=== PATIENT | female | born 1935 | race Caucasian/White ===

== ENCOUNTER 2016-08-17 09:37 | Observation (INO) | payer OTHER, MEDICAID ==
[2016-08-17] MEDS ORDERED: ONDANSETRON 4 MG/2 ML VIAL IVP ONE (10:16)
[2016-08-17] MEDS ORDERED: NS 1,000 ML IV ONE (10:16)
[2016-08-17] MEDS ORDERED: PANTOPRAZOLE SODIUM 40 MG in NS 100 ML IV ONE (10:17)
--- NOTE | 2016-08-17 10:20 | EDPHY ---
H & P Stated Complaint: black stools since wednesday , history of GI bleed Time Seen by Provider: 08/17/16 09:54 HPI/ROS: CHIEF COMPLAINT: GI bleed HISTORY OF PRESENT ILLNESS: The patient is an 80-year-old female who presents with her for dark tarry stools for the last day and a half. She feels slightly lightheaded when standing. She has a history of valvular heart disease with mitral regurgitation status post aortic valve replacement and congestive heart failure. Also history of atrial fibrillation with a permanent pacemaker. She is not anticoagulated because of 2 previous episodes of GI bleed. She had upper endoscopy, lower endoscopy and has swallowed a camera pill. No definitive source for the bleeding has been found. She has required blood transfusion in the past. Her electric cutter operator is Dr. Williamson her transcribing operator head is Dr. Toro. REVIEW OF SYSTEMS: Constitutional: denies: chills, fever, recent illness, recent injury EENTM: denies: blurred vision, double vision, nose congestion Respiratory: denies: cough, shortness of breath Cardiac: denies: chest pain, irregular heart rate, lightheadedness, palpitations Gastrointestinal/Abdominal: See HPI denies: abdominal pain, diarrhea, nausea, vomiting Genitourinary: denies: dysuria, frequency, hematuria, pain Musculoskeletal: denies: joint pain, muscle pain Skin: denies: lesions, rash, jaundice, bruising Neurological: denies: headache, numbness, paresthesia, tingling, dizziness, weakness Hematologic/Lymphatic: denies: blood clots, easy bleeding, easy bruising Immunologic/allergic: denies: HIV/AIDS, transplant EXAM: GENERAL: Well-appearing, well-nourished and in no acute distress. HEAD: Atraumatic, normocephalic. EYES: Pupils equal round and reactive to light, extraocular movements intact, sclera anicteric, conjunctiva are normal. ENT: TMs normal, nares patent, oropharynx clear without exudates. Moist mucous membranes. NECK: Normal range of motion, supple without lymphadenopathy or JVD. LUNGS: Breath sounds clear to auscultation bilaterally and equal. No wheezes rales or rhonchi. HEART: Regular rate and rhythm without murmurs, rubs or gallops. ABDOMEN: Soft, nontender, normoactive bowel sounds. No guarding, no rebound. No masses appreciated. , rectal exam with multiple hemorrhoids, dark tarry stool on exam. BACK: No CVA tenderness, no spinal tenderness, step-offs or deformities EXTREMITIES: Normal range of motion, no pitting or edema. No clubbing or cyanosis. NEUROLOGICAL: Cranial nerves II through XII grossly intact. Normal speech, normal gait. 5/5 strength, normal movement in all extremities, normal sensation PSYCH: Normal mood, normal affect. SKIN: Warm, dry, normal turgor, no visible rashes or lesions. 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 HEMORRHOIDS, AORTIC VALVE REPLACEMENT - Family History Significant Family History: No pertinent family hx - Social History Smoking Status: Never smoked Alcohol Use: Sober Drug Use: None Constitutional: Initial Vital Signs Temperature (C) 36.7 C 08/17/16 09:42 Heart Rate 83 08/17/16 09:42 Respiratory Rate 16 08/17/16 09:42 Blood Pressure 178/87 H 08/17/16 09:42 O2 Sat (%) 90 L 08/17/16 09:42 O2 Delivery Mode Nasal Cannula O2 (L/minute) 2 Allergies/Adverse Reactions: Penicillins Allergy (Severe, Verified 12/27/15 11:40) Anaphylaxis Home Medications: Medication Instructions Recorded Letrozole [Femara 2.5 mg (*)] 2.5 mg PO DAILY 08/17/13 Thyroid [[place] Thyroid 60 MG (*)] 120 mg PO DAILY 08/17/13 Oxybutynin Chloride [OXYBUTYNIN 10 mg PO MWF@08/08/15 CHLORIDE ER] Herbals/Supplements -Info Only 1 ea PO DAILY 09/27/15 Cholecalciferol Vit D3 [Vitamin D3 2,000 units PO DAILY 12/27/15 2000 units] Multivitamins [Multivitamin (*)] 1 each PO DAILY 12/27/15 Pantoprazole Sodium [Protonix 40mg 40 mg PO BID 12/27/15 (*)] Sertraline HCl [Zoloft 50mg (*)] 50 mg PO DAILY 12/27/15 Aspirin [Aspirin 81mg (*)] 81 mg PO DAILY 02/10/16 Atorvastatin Calcium [Lipitor 40 40 mg PO HS 02/10/16 mg (*)] Ferrous Sulfate [Ferrous Sulf 325 325 mg PO DAILY 02/10/16 MG (*)] Diltiazem HCl [Taztia Xt] 240 mg PO DAILY 04/26/16 Torsemide [Demadex] 10 mg PO DAILY@12 04/26/16 Torsemide [Demadex] 20 mg PO DAILY 04/26/16 Labetalol HCl [Trandate 100 mg (*)] 100 mg PO BID #60 tab 05/02/16 hydrALAZINE [Apresoline 50 mg (*)] 75 mg PO TID #30 tab 05/02/16 Ascorbic Acid [Vitamin C 500 mg 500 mg PO DAILY 08/17/16 (*)] Donepezil HCl [Aricept 5 MG (*)] 5 mg PO DAILY 08/17/16 Magnesium Oxide [Magnesium Oxide 400 mg PO HS 08/17/16 400 mg (*)] Medical Decision Making ED Course/Re-evaluation: Patient is feeling well. She is not lightheaded. She is mildly hypertensive. Will give her her home high antihypertensives. Her hematocrit is 31 which is better than previous measurements. She does have black tar stool. The hemoccult is negative but I am concerned that this is a false negative. She does take iron. She has not been eating pizza or other unusual foods. She states that she did not feel well yesterday and was not able to eat much at all. 12:25 p.m. I discussed the case with Moriah who accepted for Dr. Webber to the [facility]. Differential Diagnosis: Partial list of the Differential diagnosis considered include but were not limited to; GI bleed, hemorrhoid, peptic ulcer disease, gastric ulcer and although unlikely based on the history and physical exam, I also considered ischemia, diverticulitis, appendicitis. - Data Points Laboratory Results: Laboratory Results 08/17/16 10:05 08/17/16 10:05 08/17/16 08/17/16 08/17/16 10:10 10:05 10:05 WBC 5.90 10^3/uL 10^3/uL (3.80-9.50) RBC 3.73 10^6/uL L 10^6/uL (4.18-5.33) Hgb 10.0 g/dL L g/dL (12.6-16.3) Hct 31.8 % L % (38.0-47.0) MCV 85.3 fL fL (81.5-99.8) MCH 26.8 pg L pg (27.9-34.1) MCHC 31.4 g/dL L g/dL (32.4-36.7) RDW 16.5 % H % (11.5-15.2) Plt Count 335 10^3/uL 10^3/uL (150-400) MPV 8.7 fL fL (8.7-11.7) Neut % (Auto) 69.2 % % (39.3-74.2) Lymph % (Auto) 15.6 % % (15.0-45.0) Gates % (Auto) 9.0 % % (4.5-13.0) Eos % (Auto) 4.9 % % (0.6-7.6) Baso % (Auto) 1.0 % % (0.3-1.7) Nucleat RBC Rel Count 0.0 % % (0.0-0.2) Absolute Neuts (auto) 4.08 10^3/uL 10^3/uL (1.70-6.50) Absolute Lymphs (auto) 0.92 10^3/uL L 10^3/uL (1.00-3.00) Absolute Monos (auto) 0.53 10^3/uL 10^3/uL (0.30-0.80) Absolute Eos (auto) 0.29 10^3/uL 10^3/uL (0.03-0.40) Absolute Basos (auto) 0.06 10^3/uL 10^3/uL (0.02-0.10) Absolute Nucleated RBC 0.00 10^3/uL 10^3/uL (0-0.01) Immature Gran % 0.3 % % (0.0-1.1) Immature Gran # 0.02 10^3/uL 10^3/uL (0.00-0.10) Sodium 140 mEq/L mEq/L (134-144) Potassium 4.1 mEq/L mEq/L (3.5-5.2) Chloride 101 mEq/L mEq/L (97-110) Carbon Dioxide 26 mEq/l mEq/l (22-31) Anion Gap 13 mEq/L mEq/L (8-16) BUN 20 mg/dL mg/dL (7-23) Creatinine 1.3 mg/dL H mg/dL (0.6-1.0) Estimated GFR 39 Glucose 83 mg/dL mg/dL (70-100) Calcium 10.2 mg/dL mg/dL (8.5-10.4) Total Bilirubin 0.8 mg/dL mg/dL (0.1-1.4) Conjugated Bilirubin 0.5 mg/dL mg/dL (0.0-0.5) Unconjugated Bilirubin 0.3 mg/dL mg/dL (0.0-1.1) AST 29 IU/L IU/L (14-46) ALT 32 IU/L IU/L (9-52) Alkaline Phosphatase 129 IU/L H IU/L (38-126) Total Protein 7.3 g/dL g/dL (6.3-8.2) Albumin 4.3 g/dL g/dL (3.5-5.0) Lipase 58.0 IU/L IU/L (23-300) Stool Occult Bld Scrn NEGATIVE (NEGATIVE) Medications Given: Discontinued Medications Sodium Chloride (Ns) 1,000 mls @ 0 mls/hr IV ONCE ONE PRN Reason: Wide Open Stop: 08/17/16 10:17 Last Admin: 08/17/16 10:20 Dose: 1,000 mls Pantoprazole Sodium 40 mg/ (Sodium Chloride) 100 mls @ 200 mls/hr IV EDNOW ONE Stop: 08/17/16 10:46 Last Admin: 08/17/16 10:30 Dose: 100 mls Ondansetron HCl (Zofran) 4 mg IVP EDNOW ONE Stop: 08/17/16 10:17 Last Admin: 08/17/16 10:15 Dose: 4 mg Departure - Departure Disposition: [facility]patient Acute Clinical Impression: Upper GI bleed Condition: Fair
[2016-08-17 10:24] LABS: % IMMATURE GRANULYOCYTES 0.3 % (0.0-1.1); ABSOLUTE IMMATURE GRANULOCYTES 0.02 10^3/uL (0.00-0.10); ADD DIFF? NO; ADD MORPH? NO; ADD SCAN? NO; ATYPICAL LYMPHOCYTE FLAG 10 (0-99); FRAGMENT RBC FLAG 0 (0-99); HEMATOCRIT 31.8 % (38.0-47.0); LEFT SHIFT FLG 0 (0-99); LIPEMIA HEMOLYSIS FLAG 80 (0-99); MEAN CELL HEMOGLOBIN 26.8 pg (27.9-34.1); MEAN CELL HEMOGLOBIN CONCENTR. 31.4 g/dL (32.4-36.7); MEAN CELL VOLUME 85.3 fL (81.5-99.8); MEAN PLATELET VOLUME 8.7 fL (8.7-11.7); PLATELET CLUMPS FLAG 10 (0-99); PLATELET COUNT 335 10^3/uL (150-400); RED BLOOD CELL COUNT 3.73 10^6/uL (4.18-5.33); RED CELL DISTRIBUTION WIDTH 16.5 % (11.5-15.2)
[2016-08-17 10:42] LABS: ALANINE AMINOTRANSFERASE 32 IU/L (9-52); ALBUMIN 4.3 g/dL (3.5-5.0); ALKALINE PHOSPHATASE 129 IU/L (38-126); ANION GAP 13 mEq/L (8-16); ASPARTATE AMINOTRANSFERASE 29 IU/L (14-46); BILIRUBIN,TOTAL 0.8 mg/dL (0.1-1.4); BILIRUBIN-CONJUGATED 0.5 mg/dL (0.0-0.5); BILIRUBIN-UNCONJUGATED 0.3 mg/dL (0.0-1.1); CALCIUM 10.2 mg/dL (8.5-10.4); CARBON DIOXIDE 26 mEq/l (22-31); CHLORIDE 101 mEq/L (97-110); CREATININE 1.3 mg/dL (0.6-1.0); GLOMERULAR FILTRATION RATE 39; GLUCOSE 83 mg/dL (70-100); POTASSIUM 4.1 mEq/L (3.5-5.2); SODIUM 140 mEq/L (134-144); TOTAL PROTEIN 7.3 g/dL (6.3-8.2)
--- NOTE | 2016-08-17 12:45 | HOSPPROG ---
Hospitalist Progress Note Assessment/Plan: HISTORY AND PHYSICAL CC: dark stools HISTORY: This patient comes into the ER today because of a complaint of dark stools. History comes in part from the patient but also largely from her as the patient does have some memory issues. Chronic to the the patient was doing well until about 10 days ago. For approximately a week at that point the patient developed intermittent bouts of nausea and other times intermittent bouts of decreased appetite and significant fatigue. This went on without abdominal pain or vomiting or fever. Then 2 days ago she felt significantly better, was eating well without nausea and was out drinking upwards in the garden for a good part of the day. Then yesterday she began to have numerous bouts of loose stools. As far as I can tell there was no pain associated with this and again no fevers, though the patient's memory issues may interfere with evaluation for pain at this time. This morning patient noticed that her stool appeared black and she showed this to her who agreed that appeared black. It sounds like she may have had 1 black stool last evening as well. There is no red blood, no emesis good. No abdominal pain. In the emergency room she was test by Dr. Mcdonald who performed rectal exam and found again black looking stools that he felt looks like melena but on occult blood testing that was negative for blood. The patient has felt well otherwise recently with no symptoms and no symptoms of exacerbation of her chronic illnesses. Notably she has a history of upper GI bleed on 2 occasions 1 of which is associated with gastritis and a more recent of which was associated with inability to find a source despite upper and lower endoscopy and capsule endoscopy. She does take chronic proton pump inhibitor therapy twice daily. She does take an aspirin a day but does not take any other platelet inhibitors or anticoagulants because of her history of recurrent bleeding. This is the recommendation she came to with Dr. Phill Toro evaluating both her bleeding episodes and her cardiac issues. ROS: A comprehensive 10 system review revealed no other significant findings PAST MEDICAL HISTORY: GI bleeding of unknown source (Dr Williamson), and another episode of upper gi bleed from gastritis A Fib CAD s/p CABG and now stents placed 2013 and again in 09/27/15 Diast CHF Mitral Regurgitaion, s/p TAVR for Ao Stenosis NICOLE Chronic Kidney Disease Breast Cancer NHL, s/p tx in remission Dementia BPPV FAMILY MEDICAL HISTORY: Heart Disease SOCIAL HISTORY: lives with in [place];He is her surrogate decision maker if needed No tobacco or alcohol MEDICATIONS: The patients list has been reconciled by our clinical pharmacist in the EMR. I have reviewed the list and ordered appropriate medicines. Allergy to PCN (hives) PHYSICAL EXAMINATION: Vital Signs: Moderately severe hypertension upon arrival which has come down to better blood pressure spontaneously here so far. She did miss some of her blood pressure medicines last night and this morning. 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: rate controlled AFib in the ER Examination: General: alert, oriented, some obvious memory deficit, at her baseline per her , otherwise good mentation, relaxed Skin: warm, dry, good color, no rash HEENT: normal Neck: no mass or jvd Resps: relaxed Lungs: clear breath sounds Heart: regular, no murmur Abdomen: soft, nondistended, nontender, +BS, no mass Upper Extremities: normal Lower Extremities: minimal edema at both ankles, warm No Bleeding or bruising Neurologic: normal speech/language, normal blasting entryman, no focal weakness IV site: looks normal LABORATORY DATA: hemoglobin is 10 on CBC which is up from 9.[address] Saldana office and up from 8.7 her last measure here prior to that Otherwise stable labs ASSESSMENT AND PLANS: 1- MELANIC STOOL APPEARANCE BUT TESTED NEGATIVE FOR HEME, PRIOR HX UPPER GI BLEED X2 2- UNCONTROLLED HTN; SHE DID MISS BLOOD PRESSURE MEDICINE DOSES LAST NIGHT AND THIS MORNING DUE TO PRESENTING SYMPTOMS 3- CAD S/P STENTS MOST RECENTLY 09/27/15, ON ANTIPLATELET THERAPY WITH ASPIRIN ALONE 4- ATRIAL FIBRILLATION, AND VALVULAR HEART DISEASE WITH MITRAL REGURGITATION AND TAVR - NO COUMADIN PER DR. TORO DUE TO HER REPEATED BLEEDING 5- NUMBNESS IN HER HAND UPON AWAKENING IN MORNING SUGGESTIVE OF POTENTIALLY CARPAL TUNNEL OR ULNAR TUNNEL SYNDROMES Given the lack of tachycardia, hypotension, decrease in hemoglobin, and heme- negative stool on testing I am inclined to think that this is not a GI bleed episode but given her symptoms possibly an infectious enteritis syndrome. However with a history of 2 upper GI bleeds in the past and ongoing aspirin therapy I will watch her vital signs and hemoglobin closely here, recheck a Hemoccult test to be certain we do not have a false negative, and watch for any other signs of bleeding. For the time being this can be done in the setting of observation status in a bed here. It may be somewhat useful to do a stool microbiologic study to see if we could confirm that there is any infection contributing to her symptoms. At the moment will continue her aspirin as she has drug-eluting stents placed 10 months ago and both valvular disease and AFib not on Plavix or anticoagulation. If there is anything that raises the concern for possible GI bleeding will stop the aspirin as indicated. Will continue her proton pump inhibitors. 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 I have reviewed the patient's case in detail with Dr. BRANDO MCDONALD I have reviewed the patient's past medical records as part of this assessment, including previous hospital admission records as well as outpatient laboratory data Objective: Vital Signs Temp Pulse Resp BP Pulse Ox 36.7 C 85 20 200/95 H 94 08/17/16 09:42 08/17/16 10:00 08/17/16 10:00 08/17/16 11:48 08/17/16 10:00 ICD10 Worksheet Patient Problems: Problems Problem Status Onset Upper GI bleed Acute Anemia Acute CAD (coronary artery disease) Acute Chronic anemia Acute Chronic bilateral upper abdominal pain Acute Chronic obstructive pulmonary disease with acute exacerbation Acute Dehydration Acute Dyspnea Acute Gastrointestinal bleed Acute Hypercalcemia Acute Renal failure Acute Renal insufficiency Acute Upper GI bleed Acute Upper abdominal pain Acute
[2016-08-17] MEDS ORDERED: ONDANSETRON 4 MG/2 ML VIAL IVP PRN (13:53)
[2016-08-17] MEDS ORDERED: ACETAMINOPHEN 325 MG TAB PO PRN (13:53)
[2016-08-17] MEDS ORDERED: OXYBUTYNIN 5 MG EXT REL TAB PO SCH (14:00)
[2016-08-17] MEDS: CHOLECALCIFEROL VIT D3 1,000 UNITS TAB PO SCH (15:40)
[2016-08-17] MEDS: ASCORBIC ACID 500 MG TAB PO SCH (15:40)
[2016-08-17] MEDS: MULTIVITAMINS 1 EACH TAB PO SCH (15:41)
[2016-08-17] MEDS: THYROID 60 MG TAB PO SCH (15:41)
[2016-08-17] MEDS: ASPIRIN 81 MG CHEWABLE TAB PO SCH (15:50)
[2016-08-17] MEDS: SERTRALINE HCL 50 MG TAB PO SCH (15:50)
[2016-08-17] MEDS: FERROUS SULFATE 325 MG TAB PO SCH (15:50)
[2016-08-17] MEDS: DONEPEZIL HCL 5 MG TAB PO SCH (15:50)
[2016-08-17] MEDS: DILTIAZEM XR 240 MG CAP PO SCH (15:55)
[2016-08-17] MEDS: TORSEMIDE 20 MG TAB PO SCH (15:56)
[2016-08-17] MEDS: LABETALOL HCL 100 MG TAB PO SCH (20:34)
[2016-08-17] MEDS: PANTOPRAZOLE SODIUM 40 MG TAB PO SCH (20:34)
[2016-08-17] MEDS ORDERED: ATORVASTATIN CALCIUM 40 MG TAB PO SCH (21:00)
[2016-08-17] MEDS ORDERED: MAGNESIUM OXIDE 400 MG TAB PO SCH (21:00)
[2016-08-18 06:00] LABS: % IMMATURE GRANULYOCYTES 0.3 % (0.0-1.1); ABSOLUTE IMMATURE GRANULOCYTES 0.02 10^3/uL (0.00-0.10); ADD DIFF? NO; ADD MORPH? NO; ADD SCAN? NO; ATYPICAL LYMPHOCYTE FLAG 10 (0-99); FRAGMENT RBC FLAG 0 (0-99); HEMATOCRIT 28.7 % (38.0-47.0); HEMOGLOBIN 8.7 g/dL (12.6-16.3); LEFT SHIFT FLG 0 (0-99); LIPEMIA HEMOLYSIS FLAG 80 (0-99); MEAN CELL HEMOGLOBIN 26.4 pg (27.9-34.1); MEAN CELL HEMOGLOBIN CONCENTR. 30.3 g/dL (32.4-36.7); MEAN CELL VOLUME 87.2 fL (81.5-99.8); MEAN PLATELET VOLUME 8.6 fL (8.7-11.7); PLATELET CLUMPS FLAG 0 (0-99); PLATELET COUNT 268 10^3/uL (150-400); RED BLOOD CELL COUNT 3.29 10^6/uL (4.18-5.33); RED CELL DISTRIBUTION WIDTH 16.3 % (11.5-15.2)
[2016-08-18 06:34] LABS: ANION GAP 10 mEq/L (8-16); CALCIUM 9.7 mg/dL (8.5-10.4); CARBON DIOXIDE 25 mEq/l (22-31); CHLORIDE 103 mEq/L (97-110); CREATININE 1.3 mg/dL (0.6-1.0); GLOMERULAR FILTRATION RATE 39; GLUCOSE 81 mg/dL (70-100); POTASSIUM 4.1 mEq/L (3.5-5.2); SODIUM 138 mEq/L (134-144)
[2016-08-18] MEDS ORDERED: TORSEMIDE 20 MG TAB PO SCH (09:00)
[2016-08-18] MEDS ORDERED: SERTRALINE HCL 50 MG TAB PO SCH (09:00)
[2016-08-18] MEDS ORDERED: LETROZOLE 2.5 MG TAB PO SCH (09:00)
[2016-08-18] MEDS ORDERED: ASCORBIC ACID 500 MG TAB PO SCH (09:00)
[2016-08-18] MEDS ORDERED: ASPIRIN 81 MG CHEWABLE TAB PO SCH (09:00)
[2016-08-18] MEDS ORDERED: DILTIAZEM HCL 240 MG PO SCH (09:00)
[2016-08-18] MEDS ORDERED: CHOLECALCIFEROL VIT D3 1,000 UNITS TAB PO SCH (09:00)
[2016-08-18] MEDS: ASPIRIN 81 MG CHEWABLE TAB PO SCH (09:06)
[2016-08-18] MEDS: ASCORBIC ACID 500 MG TAB PO SCH (09:06)
[2016-08-18] MEDS: CHOLECALCIFEROL VIT D3 1,000 UNITS TAB PO SCH (09:06)
[2016-08-18] MEDS: DILTIAZEM XR 240 MG CAP PO SCH (09:07)
[2016-08-18] MEDS: DONEPEZIL HCL 5 MG TAB PO SCH (09:08)
[2016-08-18] MEDS: LABETALOL HCL 100 MG TAB PO SCH (09:11)
[2016-08-18 09:12] VITALS: PULSE 76
[2016-08-18] MEDS: MULTIVITAMINS 1 EACH TAB PO SCH (09:12)
[2016-08-18] MEDS: PANTOPRAZOLE SODIUM 40 MG TAB PO SCH (09:12)
[2016-08-18] MEDS: SERTRALINE HCL 50 MG TAB PO SCH (09:13)
[2016-08-18] MEDS: THYROID 60 MG TAB PO SCH (09:15)
[2016-08-18 10:17] VITALS: RESP 17; TEMP 98; O2SAT 95
[2016-08-18 13:36] LABS: HEMATOCRIT 28.8 % (38.0-47.0); HEMOGLOBIN 8.9 g/dL (12.6-16.3)
[2016-08-18] MEDS: FERROUS SULFATE 325 MG TAB PO SCH (16:34)
[2016-08-18] MEDS: TORSEMIDE 20 MG TAB PO SCH (16:41)
[2016-08-18 16:45] VITALS: BP 150/67
--- NOTE | 2016-08-18 21:16 | GDS ---
[f rep st] DISCHARGE SUMMARY FINAL DIAGNOSES: 1. Black stools with no signs of gastrointestinal bleed. 2. History of a gastrointestinal bleed. 3. Uncontrolled hypertension. 4. Coronary artery disease, status post coronary artery bypass graft, as well as stents. 5. Atrial fibrillation with a history of mitral regurgitation and transcatheter aortic valve replac ement. 6. Numbness in her hand. HOSPITAL COURSE: This is an 81-year-old female who presented to the Emergency Department due to schuyler ck tarry stools. She does have a history of a GI bleed in the past. Her hemoglobin was checked ser ially, and noted to be at its baseline. She did not have an elevated BUN. She had 2 negative stool occult blood screens. The stool itself was noted to be black when these were taken. She has no hy potension, no tachycardia. I do not think that this represents a GI bleed. I think that this is mo re likely due to medications. She did take a dose of Pepto-Bismol prior to having these stools, and has also been on iron. I reviewed her most recent iron studies, she was slightly iron deficient ba ck in April. I recommend that she hold off on Pepto-Bismol and stop iron supplement at this poin t. I gave them strict warning signs on when to return to the Emergency Department for what would re present a GI bleed. We have discussed stopping other supplements. She is taking a multivitamin. I think it is safe to stop her vitamin C, as well as her vitamin D3 individual supplements, as she is receiving these in her multivitamin. I have not made any other medication changes. FOLLOWUP: She will follow up with Dr. Saldana on September 03. It would be great to have her iron checked prior to that appointment to see if she still needs the iron supplement. /[id number]/MODL
== END 2016-08-18 17:00 | disposition home or self-care (01) ==
LOC: F1N 12:45
PROVIDERS: ADMIT Internal Medicine; ATTEND Student in an Organized Health Care Education/Training Program
DX: R19.5 Other fecal abnormalities (principal); Z87.19 Personal history of other diseases of the digestive system; D64.9 Anemia, unspecified; I10 Essential (primary) hypertension; I25.10 Atherosclerotic heart disease of native coronary artery without angina pectoris; Z95.1 Presence of aortocoronary bypass graft; Z95.5 Presence of coronary angioplasty implant and graft; I48.91 Unspecified atrial fibrillation; I34.1 Nonrheumatic mitral (valve) prolapse; Z95.4 Presence of other heart-valve replacement; R20.0 Anesthesia of skin; Z85.3 Personal history of malignant neoplasm of breast; Z85.72 Personal history of non-Hodgkin lymphomas
CPT/HCPCS: G0378; J2405; 96365

== ENCOUNTER → 2016-10-27 | Outpatient (CLI) | payer OTHER | LOC: FIMAGING 10:36 | PROVIDERS: ATTEND Internal Medicine Geriatric Medicine | DX: R93.8 Abnormal findings on diagnostic imaging of other specified body structures (principal); Z85.3 Personal history of malignant neoplasm of breast; Z85.72 Personal history of non-Hodgkin lymphomas ==

== ENCOUNTER 2017-05-01 10:34 | Emergency (ER) | payer OTHER ==
[2017-05-01 10:41] VITALS: TEMP 97.7
--- NOTE | 2017-05-01 10:49 | CPEKG ---
Heart Rate: 71 RR Interval: 845 P-R Interval: 168 QRSD Interval: 148 QT Interval: 448 QTC Interval: 487 P [place]: 14 QRS [place]: -47 T Wave [place]: 110 EKG Severity - ABNORMAL ECG - EKG Impression: SINUS RHYTHM EKG Impression: LEFT BUNDLE BRANCH BLOCK Electronically Signed By: Nuvia Campos 01-May-2017 14:29:05
--- NOTE | 2017-05-01 10:54 | EDPHY ---
H & P Stated Complaint: cp midsternal since thi morning HPI/ROS: CHIEF COMPLAINT: Chest pain, dizziness HISTORY OF PRESENT ILLNESS: The patient is an 81 y/o female with a significant cardiac history arriving with her for evaluation of chest pain and dizziness onset this morning. Her medical history includes CAD with 7 cardiac stents, CABG, aortic valve replacement, pacemaker, hypertension, and dementia. She states, "I felt like I had an elephant sitting on my chest this morning" just after waking around 06:30, about 4.5 hours ago. Her noticed she was visibly dizzy around 08:00 when she went to take a shower. She then went to a hair styling appointment and continued to have chest pain then, but did not tell her until later this morning prompting him to bring her to the ED. She denies dyspnea, dysuria, abdominal pain, fever, recent illness, or recent trauma. She has taken her morning medications including 81mg aspirin per . She has not taken anything for her pain this morning. Right now she says she feels "fine." Diltazem recently cut in half. History primarily obtained from . REVIEW OF SYSTEMS: A 10 point review of systems was performed and is negative with the exception of the elements mentioned in the history of present illness. Past medical history: 1. Hypertension 2. Dementia 3. CAD Past surgical history: 1. 7 cardiac stents 2. CABG 3. Pacemaker 2014 4. 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 Nonsmoker. Moderate alcohol use. Lives in [place]. PCP: [facility] Dr. Hair. Advanced directives per state "she doesn't want to be in a vegetative state" Adult Physical: General Appearance: Alert, no acute distress. BP 208/95, repeat BP 172/85. Eyes: Pupils equal and round, no conjunctival injection, no discharge. ENT, Mouth: Mucous membranes are moist, no oropharyngeal erythema or edema. Neck: No lymphadenopathy, supple. No JVD. Respiratory: Lungs are clear to auscultation; no wheezes, rales, or rhonchi. Cardiovascular: Regular rate and rhythm; no murmur, rub, or gallop. Gastrointestinal: Abdomen is soft and non tender, no masses or organomegaly, bowel sounds normal. Skin: Warm and dry, no rashes, normal color. Back: Nontender to palpation over the thoracolumbar spine. Extremities: No lower extremity edema, no calf tenderness or swelling. Neurological: Alert and oriented. Moving all four extremities easily and equally. Psychiatric: Normal affect. 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 HEMORRHOIDS, AORTIC VALVE REPLACEMENT - Social History Smoking Status: Never smoked Constitutional: Initial Vital Signs Temperature (C) 36.5 C 05/01/17 10:38 Heart Rate 72 05/01/17 10:38 Respiratory Rate 18 05/01/17 10:38 Blood Pressure 208/95 H 05/01/17 10:38 O2 Sat (%) 94 05/01/17 10:38 O2 Delivery Mode Room Air Allergies/Adverse Reactions: Penicillins Allergy (Severe, Verified 05/01/17 10:37) Anaphylaxis Home Medications: Medication Instructions Recorded Letrozole [Femara 2.5 mg (*)] 2.5 mg PO DAILY 08/17/13 Thyroid [[place] Thyroid 60 MG (*)] 120 mg PO DAILY 08/17/13 Oxybutynin Chloride [OXYBUTYNIN 10 mg PO MW@08/08/15 CHLORIDE ER] Herbals/Supplements -Info Only 1 ea PO DAILY 09/27/15 Multivitamins [Multivitamin (*)] 1 each PO DAILY 12/27/15 Pantoprazole Sodium [Protonix 40mg 40 mg PO BID 12/27/15 (*)] Sertraline HCl [Zoloft 50mg (*)] 50 mg PO DAILY 12/27/15 Aspirin [Aspirin 81mg (*)] 81 mg PO DAILY 02/10/16 Atorvastatin Calcium [Lipitor 40 40 mg PO HS 02/10/16 mg (*)] Diltiazem HCl [Taztia Xt] 240 mg PO DAILY 04/26/16 Torsemide [Demadex] 10 mg PO DAILY@12 04/26/16 Torsemide [Demadex] 20 mg PO DAILY 04/26/16 Labetalol HCl [Trandate 100 mg (*)] 100 mg PO BID #60 tab 05/02/16 hydrALAZINE [Apresoline 50 mg (*)] 75 mg PO TID #30 tab 05/02/16 Donepezil HCl [Aricept 5 MG (*)] 5 mg PO DAILY 08/17/16 Magnesium Oxide [Magnesium Oxide 400 mg PO HS 08/17/16 400 mg (*)] Medical Decision Making - Diagnostics Imaging: I viewed and interpreted images myself ED Course/Re-evaluation: This is an 81 y/o female with a significant cardiac history and dementia who presents with several hours of chest pain and lightheadedness since waking this morning. She currently feels back to normal on assessment. Exam is unremarkable. Plan for standard cardiac work up including IV, labs, EKG, chest x -ray. 324mg PO aspirin administered. The 12 lead EKG was interpreted by myself. Sinus rhythm rate 71, left bundle branch block. See hard copy and/or "tracemaster" electronic copy for interpretation. LBBB seen on previous EKGs. Chest x-ray shows nothing acute. Troponin normal. No evidence of infection. 1223: Reevaluated patient and discussed work up thus far. I have not found signs of acute cardiac etiology for her symptoms, but her story is concerning for cardiac cause like angina. It does not sounds like it is associated with exertion. Acid reflux is also a potential cause for symptoms and she notes she ate [place] food last night for dinner. Discussed options for admission vs. discharge home and associated risks. Admission would allow for serial troponins and provocative cardiac testing. states patient has advanced directives regarding vegetative state, but it's not clear what interventions she would want if they were needed. says she would be able to follow up with her PCP as early as Wednesday for reevaluation. She is eager to go home and follow up later this week. I spoke at some length with him about the risks of returning home--with these including her . He is her medical decision maker/ caregiver, understands the risks, and declines admission. I have no doubt that he is trying to act in her best interest. He understands that they are welcome to return at any time. Differential Diagnosis: I considered a ddx of chest pain that includes but is not limited to ACS, pneumonia, pericarditis, pneumothorax, pacer failure, PE. - Data Points Laboratory Results: Laboratory Results 05/01/17 10:53 05/01/17 10:53 Medications Given: Discontinued Medications Aspirin (Aspirin) 324 mg PO EDNOW ONE Stop: 05/01/17 11:05 Last Admin: 05/01/17 11:22 Dose: 324 mg Departure - Departure Disposition: Home, Routine, Self-Care Clinical Impression: Chest pain Qualifiers: Chest pain type: precordial pain Qualified Code(s): R07.2 - Precordial pain Condition: Good Instructions: Angina (ED), Chest Pain (ED) Additional Instructions: 1. Continue taking medications as directed. 2. Please follow up with your primary care provider and special education para professional early this week. You've been referred to [facility] if needed. 3. Return to the ED for any worsening of condition. Referrals: Dunia Dennison MD [Primary Care Provider] - As per Instructions Mg Braxton MD [Medical Doctor] - As per Instructions Report Scribed for: Nuvia Campos Report Scribed by: Barbara Montemayor Date of Report: 05/01/17 Time of Report: 11:06 Physician Review and Approval Statement: 05/08/17 08:25 Portions of this chart were entered by a biomedical service engineer. I personally performed the HPI, PE, and MDM. I have reviewed the chart and agree with the documentation.
[2017-05-01] MEDS ORDERED: ASPIRIN 81 MG CHEWABLE TAB PO ONE (11:04)
[2017-05-01 11:13] LABS: PLATELET COUNT 219 10^3/uL (150-400)
[2017-05-01 12:40] VITALS: BP 172/85; PULSE 62; RESP 24; O2SAT 98
== END 2017-05-01 13:19 | disposition home or self-care (01) ==
DX: R07.2 Precordial pain (principal); I10 Essential (primary) hypertension; I25.810 Atherosclerosis of coronary artery bypass graft(s) without angina pectoris; Z79.82 Long term (current) use of aspirin; Z85.3 Personal history of malignant neoplasm of breast; Z95.0 Presence of cardiac pacemaker; Z95.5 Presence of coronary angioplasty implant and graft

== ENCOUNTER 2017-06-03 17:56 | Observation (INO) | payer OTHER ==
--- NOTE | 2017-06-03 18:18 | CPEKG ---
Heart Rate: 86 RR Interval: 698 P-R Interval: 200 QRSD Interval: 144 QT Interval: 436 QTC Interval: 522 P Vinton: 86 QRS Vinton: -43 T Wave Vinton: 122 EKG Severity - ABNORMAL ECG - EKG Impression: SINUS RHYTHM EKG Impression: LEFT BUNDLE BRANCH BLOCK Electronically Signed By: Debora Dasilva 03-Jun-2017 22:41:47
--- NOTE | 2017-06-03 18:18 | EDPHY ---
HPI/HX/ROS/PE/MDM Narrative: CHIEF COMPLAINT: Chest pressure HISTORY OF PRESENT ILLNESS: The patient is an 81 y/o female with an extensive cardiac history including CAD , CABG, pacemaker, stents, atrial fibrillation, aortic valve replacement (2015), dementia. She is complaining of sudden onset mid-sternal chest pain radiating to her right back, onset 17:15, 1 hour ago. She states she "felt like I had an elephant sitting on my chest when the pain began". The pain began to decrease 30 minutes after onset and is still decreasing. At around 18:20, she began to feel flushed, but is no longer feeling this. The pain is currently a 1/ 10 but was a 9/10 at its worse. Denies feeling short of breath or lightheaded today. Denies swelling in her legs. Denies changes to her medications. On she was seen in this ED for chest pain and dizziness but discharged home, she is not dizzy today. Takes 81mg Aspirin daily. No fever, chills, shortness of breath, palpitations, vomiting, diarrhea, urinary complaints, headache, lightheadedness. Has previously seen Dr. Toro with [facility]. Patient's primary care physician is Dr. Dunia Dennison. Patient is part of the [facility] program. Prior medical records reviewed including ED visit with Dr. Campos on 05/01/17. REVIEW OF SYSTEMS: Aside from elements discussed in the HPI, a comprehensive 10-point review of systems was reviewed and is negative. Patient denies any cold symptoms, cough, runny nose. 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 Dennison ([phone]) in the [facility]. VITAL SIGNS: BP: 195/130, O2Sat: 91%, others reviewed by me GENERAL: Well-developed, well-nourished, resting comfortably in no respiratory distress. HEENT: Atraumatic. Eyes: No icterus, no injection. Mouth: moist mucous membranes. No erythema or lesions. Neck: supple with no adenopathy. LUNGS: Clear to auscultation bilaterally, no wheezes, rhonchi or rales. CARDIAC: Split S2 and soft systolic murmur. Regular rate and rhythm, no rubs or gallops. ABDOMEN: Soft, nontender, nondistended, bowel sounds normal. BACK: No CVA tenderness. EXTREMITIES: No trauma. No edema. Range of motion is normal throughout. NEURO: Alert and oriented, grossly nonfocal. SKIN: Warm and dry, no rash. PSYCHIATRIC: Normal mentation, no agitation. Portions of this note were transcribed by a medical facilities section director. I personally performed a history, physical exam, medical decision making, and confirmed accuracy of information the transcribed note. ED Course: The patient is an 81 y/o female with an extensive cardiac history including CAD , CABG, pacemaker, stents, atrial fibrillation, aortic valve replacement (2015), dementia. She is presenting to the ED today after developing sudden onset midsternal chest pressure 1 hour ago. The pain has been decreasing since onset. On exam she has a split S2 and soft systolic murmur. Labs, EKG, and chest x-ray ordered. 324mg PO Aspirin administered. 1811: 12-LEAD EKG: Please see the full report in [facility]. My interpretation: Normal sinus rhythm with a rate of 86, left bundle branch block. There is mildly more ST elevation in leads to V2 V3 in comparison to previous. ST elevation does not reach 5 mm. 1933: Patient has a negative Troponin and normal labs. Her chest x-ray reveals a mildly enlarged cardiac silhouette and postoperative changes. 1943: Patient's creatinine and BUN are mildly worse than her visit on 05/01/17. 2010: Reassessed patient and discussed laboratory and imaging findings. While walking to the bathroom the patient's O2Sats decreased to 84%. Several years ago she was on home oxygen, but has not been on it recently. Her would feel more comfortable if she is admitted for further observation and evaluation. Consulted with Dr. Dennison ([phone]) from [facility] regarding the patient's symptoms. Dr. Dennison knows the patient well. Patient recently had a pacemaker interrogation with unknown results at this time. questions whether the patient may be having some arrhythmias leading to her discomfort. Patient was discussed with the hospitalist service and she will be admitted to Dr. Leyva's service MDM: After history and physical examination, the differential for chest pain was considered, including but not limited to, myocardial ischemia, acute coronary syndrome, pulmonary embolus, chest wall pain, pleural inflammation and pulmonary infectious causes. - Data Points Imaging Results: Imaging Impressions Chest X-Ray 06/03/17 18:16 Impression: 1. No significant interval change. 2. Mildly enlarged cardiac silhouette and postoperative changes, as above. Imaging: I viewed and interpreted images myself Laboratory Results: Laboratory Results 06/03/17 18:23 06/03/17 18:23 06/03/17 06/03/17 18:23 18:23 WBC 5.76 10^3/uL 10^3/uL (3.80-9.50) RBC 4.61 10^6/uL 10^6/uL (4.18-5.33) Hgb 13.8 g/dL g/dL (12.6-16.3) Hct 40.5 % % (38.0-47.0) MCV 87.9 fL fL (81.5-99.8) MCH 29.9 pg pg (27.9-34.1) MCHC 34.1 g/dL g/dL (32.4-36.7) RDW 14.3 % % (11.5-15.2) Plt Count 259 10^3/uL 10^3/uL (150-400) MPV 8.9 fL fL (8.7-11.7) Neut % (Auto) 56.6 % % (39.3-74.2) Lymph % (Auto) 25.9 % % (15.0-45.0) [place] % (Auto) 11.3 % % (4.5-13.0) Eos % (Auto) 4.7 % % (0.6-7.6) Baso % (Auto) 1.2 % % (0.3-1.7) Nucleat RBC Rel Count 0.0 % % (0.0-0.2) Absolute Neuts (auto) 3.26 10^3/uL 10^3/uL (1.70-6.50) Absolute Lymphs (auto) 1.49 10^3/uL 10^3/uL (1.00-3.00) Absolute Monos (auto) 0.65 10^3/uL 10^3/uL (0.30-0.80) Absolute Eos (auto) 0.27 10^3/uL 10^3/uL (0.03-0.40) Absolute Basos (auto) 0.07 10^3/uL 10^3/uL (0.02-0.10) Absolute Nucleated RBC 0.00 10^3/uL 10^3/uL (0-0.01) Immature Gran % 0.3 % % (0.0-1.1) Immature Gran # 0.02 10^3/uL 10^3/uL (0.00-0.10) Sodium 138 mEq/L mEq/L (135-145) Potassium 3.8 mEq/L mEq/L (3.5-5.2) Chloride 99 mEq/L mEq/L (97-110) Carbon Dioxide 26 mEq/l mEq/l (22-31) Anion Gap 13 mEq/L mEq/L (8-16) BUN 47 mg/dL H mg/dL (7-23) Creatinine 1.6 mg/dL H mg/dL (0.6-1.0) Estimated GFR 31 Glucose 81 mg/dL mg/dL (70-100) Calcium 9.8 mg/dL mg/dL (8.5-10.4) Troponin I < 0.012 ng/mL ng/mL (0.000-0.034) Medications Given: Discontinued Medications Aspirin (Aspirin) 324 mg PO EDNOW ONE Stop: 06/03/17 20:01 Last Admin: 06/03/17 20:14 Dose: 324 mg General Time Seen by Provider: 06/03/17 18:16 Initial Vital Signs: Initial Vital Signs Temperature (C) 36.8 C 06/03/17 18:06 Heart Rate 83 06/03/17 18:06 Respiratory Rate 16 06/03/17 18:06 Blood Pressure 195/130 H 06/03/17 18:06 O2 Sat (%) 91 L 06/03/17 18:06 O2 Delivery Mode Room Air O2 (L/minute) 2 Allergies/Adverse Reactions: Penicillins Allergy (Severe, Verified 06/03/17 18:02) Anaphylaxis Home Medications: Medication Instructions Recorded Letrozole [Femara 2.5 mg (*)] 2.5 mg PO DAILY 08/17/13 Thyroid [[place] Thyroid 60 MG (*)] 120 mg PO DAILY 08/17/13 Herbals/Supplements -Info Only 1 ea PO DAILY 09/27/15 Multivitamins [Multivitamin (*)] 1 each PO DAILY 12/27/15 Sertraline HCl [Zoloft 50mg (*)] 50 mg PO DAILY 12/27/15 Aspirin [Aspirin 81mg (*)] 81 mg PO DAILY 02/10/16 Atorvastatin Calcium [Lipitor 40 40 mg PO HS 02/10/16 mg (*)] Diltiazem HCl [Taztia Xt] 240 mg PO DAILY 04/26/16 Torsemide [Demadex] 10 mg PO DAILY@12 04/26/16 Torsemide [Demadex] 20 mg PO DAILY 04/26/16 Labetalol HCl [Trandate 100 mg (*)] 100 mg PO BID #60 tab 05/02/16 hydrALAZINE [Apresoline 50 mg (*)] 75 mg PO TID #30 tab 05/02/16 Magnesium Oxide [Magnesium Oxide 400 mg PO HS 08/17/16 400 mg (*)] Departure - Departure Disposition: [facility] Inpatient Acute Clinical Impression: Hypoxia Chest pain Qualifiers: Chest pain type: unspecified Qualified Code(s): R07.9 - Chest pain, unspecified Condition: Fair Report Scribed for: Debora Dasilva Report Scribed by: Nicolette Arthur Date of Report: 06/03/17 Time of Report: 18:18
[2017-06-03 18:29] LABS: PLATELET COUNT 259 10^3/uL (150-400)
[2017-06-03] MEDS ORDERED: ASPIRIN 81 MG CHEWABLE TAB PO ONE (20:00)
[2017-06-03] MEDS ORDERED: ONDANSETRON 4 MG/2 ML VIAL IVP PRN (22:10)
[2017-06-03] MEDS ORDERED: ACETAMINOPHEN 325 MG TAB PO PRN (22:10)
[2017-06-03] MEDS ORDERED: ONDANSETRON DISINTEGRATING 4 MG TAB PO PRN (22:10)
--- NOTE | 2017-06-03 23:23 | PDGENHP ---
History and Physical - Chief Complaint Chest pain - History of Present Illness 81 yo F w/ hx of CAD s/p CABG and multiple stents, s/p TAVR, and AF presents with chest pain. Patient noted sudden onset, mid-sternal chest pain with onset around 5 PM while sitting in the car. She denies associated symptoms and the pain abated spontaneously in about 30 minutes. She is asymptomatic currently. Work-up thus far has been unremarkable without objective evidence of ischemia. History Information - Allergies/Home Medication List Allergies/Adverse Reactions: Penicillins Allergy (Severe, Verified 06/03/17 18:02) Anaphylaxis Home Medications: Letrozole [Femara 2.5 mg (*)] 2.5 mg PO DAILY@08/17/13 [Last Taken 06/03/17 06:00] Multivitamins [Multivitamin (*)] 1 tab PO DAILY 12/27/15 [Last Taken 06/03/17 09 :00] Sertraline HCl [Zoloft 50mg (*)] 50 mg PO DAILY 12/27/15 [Last Taken 06/03/17 09 :00] Aspirin [Aspirin 81mg (*)] 81 mg PO DAILY 02/10/16 [Last Taken 06/03/17 09:00] Torsemide [Demadex] 10 mg PO HS 04/26/16 [Last Taken 06/02/17 21:00] Torsemide [Demadex] 20 mg PO DAILY 04/26/16 [Last Taken 06/03/17 09:00] Ascorbic Acid [Vitamin C 500 mg (*)] 500 mg PO BID 06/03/17 [Last Taken 09:00] Diltiazem HCl [Diltiazem 24Hr Cd] 120 mg PO DAILY 06/03/17 [Last Taken 06/03/17 09:00] Levothyroxine [Synthroid 100 mcg (*)] 100 mcg PO DAILY06 06/03/17 [Last Taken 07:00] Liothyronine Sodium [Cytomel 25 mcg (*)] 12.5 mcg PO HS 06/03/17 [Last Taken 21:00] I have personally reviewed and updated: family history, medical history - Past Medical History atrial fibrillation, coronary artery disease - Surgical History Reports: coronary bypass surgery Additional surgical history: TAVR - Family History Positive for: cancer - Social History Smoking Status: Never smoked Review of Systems Review of Systems: ROS: 10pt was reviewed & negative except for what was stated in HPI & below Physical Exam Physical Exam: Temp Pulse Resp BP Pulse Ox 36.5 C 81 19 157/71 H 95 06/03/17 22:25 06/03/17 22:25 06/03/17 22:25 06/03/17 22:25 06/03/17 22:25 O2 (L/minute) 2 Constitutional: no apparent distress, not in pain Eyes: PERRL, EOMI Ears, Nose, Mouth, Throat: moist mucous membranes, no oral mucosal ulcers Cardiovascular: regular rate and rhythym, systolic murmur, edema (Trace b/l IGNACIO) Respiratory: no respiratory distress, clear to auscultation Gastrointestinal: normoactive bowel sounds, soft, non-tender abdomen Skin: warm, normal color Musculoskeletal: full muscle strength, no muscle tenderness Neurologic: AAOx3, CN II-XII Intact Psychiatric: interacting appropriately, not anxious Lab Data & Imaging Review 06/03/17 18:23 06/03/17 18: WBC 5.76 10^3/uL (3.80-9.50) 06/03/17 18: RBC 4.61 10^6/uL (4.18-5.33) 06/03/17 18:23 Hgb 13.8 g/dL (12.6-16.3) 06/03/17 18: Hct 40.5 % (38.0-47.0) 06/03/17 18: MCV 87.9 fL (81.5-99.8) 06/03/17 18: MCH 29.9 pg (27.9-34.1) 06/03/17 18: MCHC 34.1 g/dL (32.4-36.7) 06/03/17 18: RDW 14.3 % (11.5-15.2) 06/03/17 18: Plt Count 259 10^3/uL (150-400) 06/03/17 18:23 MPV 8.9 fL (8.7-11.7) 06/03/17 18: Neut % (Auto) 56.6 % (39.3-74.2) 06/03/17 18: Lymph % (Auto) 25.9 % (15.0-45.0) 06/03/17 18: [place] % (Auto) 11.3 % (4.5-13.0) 06/03/17 18: Eos % (Auto) 4.7 % (0.6-7.6) 06/03/17 18: Baso % (Auto) 1.2 % (0.3-1.7) 06/03/17 18: Nucleat RBC Rel Count 0.0 % (0.0-0.2) 06/03/17 18: Absolute Neuts (auto) 3.26 10^3/uL (1.70-6.50) 06/03/17: Absolute Lymphs (auto) 1.49 10^3/uL (1.00-3.00) 06/03/17: Absolute Monos (auto) 0.65 10^3/uL (0.30-0.80) 06/03/17: Absolute Eos (auto) 0.27 10^3/uL (0.03-0.40) 06/03/17 18: Absolute Basos (auto) 0.07 10^3/uL (0.02-0.10) 06/03/17: Absolute Nucleated RBC 0.00 10^3/uL (0-0.01) 06/03/17 18: Immature Gran % 0.3 % (0.0-1.1) 06/03/17 18: Immature Gran # 0.02 10^3/uL (0.00-0.10) 06/03/17 18: Sodium 138 mEq/L (135-145) 06/03/17 18: Potassium 3.8 mEq/L (3.5-5.2) 06/03/17: Chloride 99 mEq/L (97-110) 06/03/17: Carbon Dioxide 26 mEq/l (22-31) 06/03/17: Anion Gap 13 mEq/L (8-16) 06/03/17 18: BUN 47 mg/dL (7-23) H 06/03/17: Creatinine 1.6 mg/dL (0.6-1.0) H 02/01/18 18:23 Estimated GFR 31 06/03/17 18:23 Glucose 81 mg/dL (70-100) 06/03/17 18:23 Calcium 9.8 mg/dL (8.5-10.4) 06/03/17 18:23 Troponin I < 0.012 ng/mL (0.000-0.034) 06/03/17 18:23 Nasal Influenza A PCR NEGATIVE FOR FLU A (NEGATIVE) 06/03/17 20:25 Nasal Influenza B PCR NEGATIVE FOR FLU B (NEGATIVE) 06/03/17 20:25 Imaging Review: Imaging Impressions Chest X-Ray 06/03/17 18:16 Impression: 1. No significant interval change. 2. Mildly enlarged cardiac silhouette and postoperative changes, as above. Visualized and Interpreted EKG results: Yes EKG Interpretation: Positive for: other (LBBB) Assessment & Plan Assessment: 81 yo F w/ hx of CAD s/p CABG and multiple stents, s/p TAVR, HFpEF, and presents with chest pain. Plan: 1. Chest pain - Atypical in terms of anginal pain noting no relation to exertion and relieved without intervention. However, noting extensive history, patient is very high risk for cardiac complications. Troponin negative on admission and ECG w/ stable LBBB. - Admit for observation - Monitor on telemetry, trend cardiac enzymes - Cardiology consult noting extensive cardiac history 2. CAD - s/p CABG in 2006 and a total of 7 cardiac stents, most recently in 2014. She has been off of Plavix for at least a year. She is compliant with aspirin and BB, interestingly not on statin. - Acute work-up as above 3. HFpEF - Normal LVEF with moderate diastolic dysfunction noted on 2016 TTE. Patient appears well compensated currently and states her weight has been stable in 210-215 lbs range. She is compliant with Torsemide therapy. 4. AF - c/b SSS, s/p PPM. Takes diltiazem and labetalol as outpatient, not on AC. 5. - S/p TAVR 6. CKD - Stage IIIB; Serum creatinine essentially at baseline on admission. 7. HTN - Continue home meds 8. Hypothyroid - On LTX Diet - Cardiac, NPO @ [place] Ppx - [facility] Code - Full Dispo - Admit to PCU for observation
[2017-06-04 04:28] LABS: PLATELET COUNT 233 10^3/uL (150-400)
[2017-06-04] MEDS: HEPARIN 5,000 UNIT/0.5 ML SYR SC SCH ×2 (05:00→15:29)
[2017-06-04] MEDS ORDERED: ENOXAPARIN 30 MG/0.3 ML SYR SC SCH (09:00)
[2017-06-04] MEDS ORDERED: LABETALOL HCL 100 MG TAB PO SCH (09:45)
[2017-06-04] MEDS ORDERED: ASPIRIN 81 MG CHEWABLE TAB PO SCH (09:45)
[2017-06-04] MEDS ORDERED: DILTIAZEM CD 120 MG CAP PO SCH (09:45)
[2017-06-04] MEDS ORDERED: TORSEMIDE 20 MG TAB PO SCH ×2 (09:45→21:00)
[2017-06-04] MEDS ORDERED: LEVOTHYROXINE 100 MCG TAB PO SCH (09:45)
[2017-06-04] MEDS ORDERED: SERTRALINE HCL 50 MG TAB PO SCH (09:45)
--- NOTE | 2017-06-04 11:16 | ASMTCMCOM ---
CM Note CM Note Notes: 06/04/2017 Case Management Note Met w/pt, Juan José [phone] and granddaughter Elisha [phone]. Pt is enrolled in the [facility] program. She attends the day program 3 days a week. She has unskilled care through [facility] for 1 hour a day on the other 2 days of the week. She is enrolled in gym classes at [facility] to work on gait and balance and increasing endurance. Spoke w/ nurse practitioner at the [facility] program today [phone]. Per CAR SALES REPRESENTATIVE, Dr. Starr from [facility] would like pace maker interrogated while at [facility]. Notified 2 W RN who stated that was ordered for today. [facility] would like daily updates faxed to [phone]. Notified [facility] that a transitional care consult had been ordered. Case Management d/c poc: Return to utilizing [facility] programs. Pt has strong family support. Case Management to follow for further d/c needs. Date Signed: 06/04/2017 11:16 AM Electronically Signed By:Viola Luna RN
--- NOTE | 2017-06-04 12:05 | GCON ---
[f rep st] CONSULTATION CARDIOLOGY CONSULTATION DATE OF CONSULTATION: 06/04/2017 REASON FOR CONSULTATION: Chest pain. HISTORY OF PRESENT ILLNESS: The patient is a pleasant 81-year-old female, well known to [facility], whose primary flight engineer instructor is doctor Bharath Toro. The patient was in her usual state of health until last evening, when she and her were traveling to [place] to go out to dinner. While driving, she had an acute onset of substernal chest heaviness which she described as a 6 to 7/10 substernal, nonradiating chest heaviness with no associated symptoms. She described this as an "elephant sitting on her chest." She informed her that they should probably turn around and present to [facility]. She states that this pain began at approximately 5: 15 p.m. last evening and, upon their arrival at [facility] at approximately 6 p.m., her symptoms had almost completely resolved, but not completely. She states she received an aspirin in the hospital with gradual resolution in symptoms. The patient has had no further episodes of chest discomfort and has remained hemodynamically stable throughout the remainder of her hospitalization. The patient has an extensive cardiac history including coronary artery disease status post CABG in 2006. She has had multiple percutaneous coronary interventions including a total of 7 stents. She has a history of aortic stenosis status post TAVR aortic valve replacement in January 2016. She has a history of paroxysmal atrial fibrillation. She is not on anticoagulation secondary to known history of GI bleeding. She has underlying left bundle branch block. She has a history of sick sinus syndrome, status post permanent pacemaker implantation, hypertension, and history of acute on chronic diastolic congestive heart failure. In reviewing her cardiac history in detail, she did undergo 4 vessel CABG in 2009. She had PCI to the RCA in 2005. She had PCI to the diagonal branch in 2013, PCI to the LAD and saphenous vein graft in September of 2015. Last pacemaker interrogation was from January 2017 demonstrating normal device function. Currently, at the time of my exam, she is resting comfortably without cardiac complaint. HOME MEDICATIONS: Include torsemide 20 mg daily and 10 mg at h.s., labetalol 100 mg p.o. b.i.d., diltiazem 120 mg extended release once daily, aspirin 81 mg daily. Hydralazine 75 mg p.o. t.i.d. She is on Femara 2.5 mg daily, multivitamin, Zoloft 50 mg daily, vitamin C 500 mg b.i.d., Synthroid 100 mcg daily, and Cytomel 12.5 mcg p.o. h.s. ALLERGIES: Includes penicillins. SOCIAL HISTORY: She lives with her . 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 PAST SURGICAL HISTORY: Includes breast surgery secondary to breast cancer, tonsillectomy, 26 mm TAVR aortic valve in January 2016 and 4 vessel CABG in 2009. PHYSICAL EXAMINATION: VITAL SIGNS: Blood pressure 161/81, heart rate of 78, respiratory rate of 15, oxygen saturation 97% on 2 L, temperature 36.6. GENERAL : She is awake, alert, oriented, appropriate, in no apparent distress. NECK: There is no evidence of JVP or carotid bruits. LUNGS: Clear to auscultation bilaterally. CARDIAC: S1, S2. Regular rate and rhythm. No murmurs, rubs, or gallops. ABDOMEN: Soft, nondistended. There is no pulsatile mass or abdominal bruits. EXTREMITIES: She has trace bilateral ankle edema with no evidence of cyanosis or clubbing. DATA: White blood cell count 4.94, hemoglobin of 12.4, hematocrit of 36.8, platelet count is 233. Sodium 143, potassium 4.1, chloride 105, bicarb 26, BUN 43, creatinine 1.4. Creatinine on admission was 1.6, phosphorus of 4.7, magnesium 2.4. Initial troponin was less than 0.012. Repeat troponin of 0.125. EKG from June 03, 2017 at 1816 demonstrates sinus rhythm with left bundle branch block. No findings meet Sgar[place] criteria for an acute infarction in the setting of left bundle branch block. IMPRESSION: 1. Episode of atypical chest discomfort. 2. Known history of coronary artery disease status post coronary artery bypass graft and multiple percutaneous coronary interventions, most recently in September 2015. 3. History of aortic stenosis, status post transcatheter aortic valve replacement. 4. History of diastolic congestive heart failure. 5. Sick sinus syndrome status post permanent pacemaker implantation. 6. History of paroxysmal atrial fibrillation, not on anticoagulation despite CHADS-VASc score of 5 secondary to gastrointestinal bleeding. RECOMMENDATIONS: 1. Recommend pacemaker interrogation to be performed in the hospital today to assess for possible paroxysms of atrial fibrillation correlating with the onset of symptoms. 2. Recommend pharmacologic nuclear stress test. 3. Complete 2D echocardiogram. 4. Would not recommend repeat left heart catheterization until above workup is complete. Given her multiple medical comorbidities, would prefer for noninvasive workup initially. This workup has been reviewed in detail with patient and her . 5. Further recommendations pending the results of the above workup. 45 min spent coordinating patient care /[id number]/MODL MTDD
[2017-06-04] MEDS ORDERED: REGADENOSON 0.4 MG/5 ML SYR IVP ONE (13:43)
--- NOTE | 2017-06-04 14:18 | ECHO ---
[email or web address] [address] [address] Main: [phone] Fax: Transthoracic Echocardiogram Name: LATOYA IRWIN MR#: [id number] Study Date: 06/04/2017 Study Time: 11:49 AM Date of : 1935 Age: 81 year(s) Height: 162.6 cm (64 in.) Weight: 97.52 kg (215 lb.) BSA: 2.02 m2 Gender: Female Examination: Echo Indication: Chest Pain, TAVR Image Quality: Contrast: Requested by: Bharath Finley BP: 161 mmHg/81 mmHg Heart Rate: Rhythm: Pacemaker rhythm Indication: Chest Pain, TAVR Procedure Staff Electronic Repair Troubleshooter: Evaristo Tinajero RDCS Reading Physician: Bharath Finley Requesting Provider: Conclusions: Normal size left ventricle. Mild concentric LV hypertrophy. EF is 51 %. There is paradoxic septal motion suggestive of bundle branch block, paced cardiac rhythm, or prior cardiac surgery. There is mid anteroseptal and apical septal hypokinesis.. Normal RV function. The left atrium is normal in size. The right atrium is normal in size. There is a TAVR CoreValve in the aortic position with an Ao Mean PG of 7 mmHg.. The pulmonary artery pressure is mildly increased. No pericardial effusion. Measurements: Chambers Valvular Assessment AV/MV Valvular Assessment TV/PV Normal Normal Normal Name Value Range Name Value Range Name Value Range Ao Dee (MM): 2.3 cm (2.2 cm-3.7 AV Vmax: 1.74 m/s (1 m/s-1.7 TR Vmax: 3.01 mm/s ( - ) cm) m/s) TR PGmax: 36 mmHg ( - ) IVSd (2D): 0.9 cm (0.6 cm-1.1 AV maxP mmHg ( - ) syst. PAP: 41 mmHg ( - ) cm) AV meanP mmHg ( - ) LVDd (2D): 4.2 cm (3.9 cm-5.3 LVOT Vmax: 1.00 m/s (0.7 m/s-1.1 cm) m/s) LVDs (2D): 3.1 cm (2.1 cm-4 EMILY (Vmax): 2.2 cm2 ( - ) cm) EMILY (VTI): 2.4 cm ( - ) LVPWd (2D): 1.2 cm ( - ) MV E Vmax: 0.81 m/s ( - ) LVOTd 2.2 cm 2.2 cm mm MV A Vmax: 1.00 m/s ( - ) LVEF (BP): 51 % (>=55 %) MV E/A: 0.81 ( - ) Continued Measurements: Patient: LATOYA IRWIN Study Date: 06/04/2017 Page 1 of 2 11:49 AM Chambers Valvular Assessment AV/MV Valvular Assessment TV/PV Name Value Name Value Name Value LADs Lon.0 cm MV E/E' Lateral: 16.30 CVP (est.): 5 mmHg LA Area: 15.4 cm2 LA Volume: 45 ml LA Volume Index: 22.3 ml/m2 Findings: Left Ventricle: Normal size left ventricle. Mild concentric LV hypertrophy. Low normal left ventricular systolic function. EF is 51 %. There is paradoxic septal motion suggestive of bundle branch block, paced cardiac rhythm, or prior cardiac surgery. Grade 1 diastolic dysfunction (abnormal relaxation). There is mid anteroseptal and apical septal hypokinesis.. Right Ventricle: Normal size right ventricle. Normal RV function. There is a pacemaker lead noted in the right ventricle. Left Atrium: The left atrium is normal in size. Right Atrium: The right atrium is normal in size. There is a pacemaker lead noted in the right atrium. Mitral Valve: Mild mitral valve leaflet calcification is present. Moderate mitral annular calcification. Mild mitral valve regurgitation is present. Aortic Valve: There is a TAVR CoreValve in the aortic position with an Ao Mean PG of 7 mmHg.. Tricuspid Valve: Mild tricuspid regurgitation is present. The pulmonary artery pressure is mildly increased. Pulmonic Valve: The pulmonic valve is normal in appearance and function. Aorta: The aorta is normal. Pericardium: No pericardial effusion. (No Signature Object) Patient: LATOYA IRWIN Study Date: 06/04/2017 Page 2 of 2 11:49 AM [id number]
[2017-06-04 15:06] VITALS: RESP 16; TEMP 97.9; O2SAT 92
[2017-06-04 16:17] VITALS: BP 152/80; PULSE 76
--- NOTE | 2017-06-04 17:01 | HOSPPROG ---
Hospitalist Progress Note Assessment/Plan: DISCHARGE DIAGNOSES: -chest pain episode isolated, suspected angina pectoralis -indeterminate elevation of troponin suspected likely due to mild ischemia -known coronary disease with history of CABG and 7 stents -stable wall motion abnormalities of the left ventricle unstable left ventricular function CONSULTANTS: Dr. Pollock while PROCEDURES: Echocardiogram Lexiscan stress with nuclear myocardial perfusion imaging HOSPITAL COURSE SUMMARY: This patient came in the hospital after an isolated episode of chest pain which resolved. There is nothing that sounds like pneumonia infection PE. She does have history of coronary disease in her symptom was consistent with possible angina. The symptoms did not recur. There is no acute heart failure, there was no arrhythmia. The patient had a minimal transient elevation of troponins to 0.12. Echocardiogram showed her previously known wall motion abnormalities with ejection fraction at 50%, no new valvular abnormalities. She had sinus rhythm throughout her stay here. The Lexiscan was done with myocardial perfusion imaging showing some mild amount of brianna-infarct ischemia and preserved ejection fraction. I reviewed her most recent coronary angiography of films with Dr. Pollock while in Dr. Sterling Morillo. The area of brianna-infarct ischemia correlated with a distal small branch the did appear to have some moderate degree of stenosis but this was a less than 2 mm branch quite distal and did not look really amenable to any kind of intervention. Given her age, her minimal troponin bump, her preserved myocardial function from previous studies, her renal function, and this artery that appeared to be not amenable to intervention, continued medical management is recommended. She is already on aspirin, calcium yessy, beta-yessy, afterload reduction with hydralazine and no recommendations are made for any changes in these medications at this time. She did not report being on a statin as she came to the hospital and will be investigating whether there is a particular reason for that. PENDING TEST RESULTS: None MEDICATION CHANGES: None consider adding statin if we can find out that she actually is not taking 1 or why she was not taking FOLLOW-UP PLAN: With Cardiology Clinic in 1-2 weeks Greater than 35 minutes bedside and care coordination time today Objective: Vital Signs Temp Pulse Resp BP Pulse Ox 36.6 C 76 16 152/80 H 92 06/04/17 15:05 06/04/17 16:17 06/04/17 15:05 06/04/17 16:17 06/04/17 15:05 Laboratory Results 06/04/17 03:48 06/04/17 03:48 06/03/17 06/04/17 06/05/17 06:59 06:59 06:59 Intake Total 250 Output Total 300 Balance 250 -300 ICD10 Worksheet Patient Problems: Problems Problem Status Onset Chest pain Acute Hypoxia Acute Anemia Acute CAD (coronary artery disease) Acute Chronic anemia Acute Chronic bilateral upper abdominal pain Acute Chronic obstructive pulmonary disease with acute exacerbation Acute Dehydration Acute Dyspnea Acute Gastrointestinal bleed Acute Hypercalcemia Acute Renal failure Acute Renal insufficiency Acute Upper GI bleed Acute Upper GI bleed Acute Upper abdominal pain Acute
--- NOTE | 2017-06-04 17:10 | PDIAF ---
- Diagnosis Diagnosis: Chest pain resolved, coronary artery disease Code Status: Full Code - Medication Management Discharge Medications: Medications to Continue on Transfer Letrozole [Femara 2.5 mg (*)] 2.5 mg PO DAILY@08/17/13 [Last Taken 06/03/17 06:00] Multivitamins [Multivitamin (*)] 1 tab PO DAILY 12/27/15 [Last Taken 06/03/17 09 :00] Sertraline HCl [Zoloft 50mg (*)] 50 mg PO DAILY 12/27/15 [Last Taken 06/03/17 09 :00] Aspirin [Aspirin 81mg (*)] 81 mg PO DAILY 02/10/16 [Last Taken 06/03/17 09:00] Torsemide [Demadex] 10 mg PO HS 04/26/16 [Last Taken 06/02/17 21:00] Torsemide [Demadex] 20 mg PO DAILY 04/26/16 [Last Taken 06/03/17 09:00] Labetalol HCl [Trandate 100 mg (*)] 100 mg PO BID #60 tab 05/02/16 [Last Taken 06/03/17 09:00] hydrALAZINE [Apresoline 50 mg (*)] 75 mg PO TID #30 tab 05/02/16 [Last Taken 05/20 12:00] Ascorbic Acid [Vitamin C 500 mg (*)] 500 mg PO BID 06/03/17 [Last Taken 09:00] Diltiazem HCl [Diltiazem 24Hr Cd] 120 mg PO DAILY 06/03/17 [Last Taken 06/03/17 09:00] Levothyroxine [Synthroid 100 mcg (*)] 100 mcg PO DAILY06 06/03/17 [Last Taken 07:00] Liothyronine Sodium [Cytomel 25 mcg (*)] 12.5 mcg PO HS 06/03/17 [Last Taken 21:00] Nitroglycerin [Nitrostat 0.4 mg (*)] 0.4 mg SL Q5M PRN #1 bottle 06/04/17 [Last Taken Unknown] Discharge Medications: Refer to the Discharge Home Medication list for PRN reason. - Orders Isolation Type: None Diet Recommendation: cardiac -low fat low salt Diet Texture: Regular Texture Diet Additional: P.r.n. nitroglycerin has been added to her medication list - Follow Up Care Current Providers and Referrals: Dunia Dennison MD [Primary Care Provider] - As per Instructions
[2017-06-04] MEDS ORDERED: LIOTHYRONINE SODIUM 25 MCG TAB PO SCH (21:00)
[2017-06-04] MEDS ORDERED: ASCORBIC ACID 500 MG TAB PO SCH (21:00)
--- NOTE | 2017-06-05 00:08 | CPR ---
[f rep st] NONINVASIVE CARDIAC PROCEDURE REPORT DATE OF PROCEDURE: 06/04/2017 PROCEDURE: Lexiscan injection of Lexiscan myocardial perfusion imaging study. SUPERVISING LITIGATION PARALEGAL: Dr. Sterling Morillo. INDICATION FOR PROCEDURE: Chest pressure, known history of CAD, left bundle branch block, known theresa ent with pacemaker. PRE: After obtaining informed consent, ensuring patient's n.p.o. status of caffeine for greater than 12 hours, patient was placed on electrocardiogram. Initial EKG shows sinus rhythm, left bundle bran ch block. The patient denies any chest pain, shortness of breath, or symptoms suggesting of ischemia . Initial blood pressure was 150/76, saturation 91%. INJECTION: Patient was given Lexiscan slow IV push followed by nuclear isotope. Patient reporting w ithin 1-2 minutes of some mild chest heaviness and flushing sensation. Noted that 1 minute post inje ction, blood pressure did drop to 120/66, heart rate increased to 93, no significant EKG changes besi cyndee rate, no arrhythmias. Within 3 minutes, patient reports symptoms subsiding and by 5 minutes, pat ient reports symptom free. Again, no EKG changes during 5 minutes recovery. Final blood pressure wa s 142/78, saturation 95%. IMPRESSION: An 81-year-old female with known history of coronary artery disease, left bundle branch block, and occasional paced rhythm, undergoing Lexiscan myocardial perfusion imaging study for evalua tion of chest pain. Patient did report mild chest heaviness with post-injection, but no electrocardi ogram changes, blood pressure remained stable. Within 5 minutes, all symptoms subsided. Currently, her vital signs are stable, she is asymptomatic of symptoms suggesting of ischemia. She is in [employer], finishing post-stress myocardial perfusion imaging. /[id number]/MODL
[2017-06-05] MEDS ORDERED: LETROZOLE 2.5 MG TAB PO SCH (06:00)
[2017-06-05] MEDS ORDERED: MULTIVITAMINS 1 EACH TAB PO SCH (09:00)
--- NOTE | 2017-06-08 12:03 | ASDISCHSUM ---
Discharge Information Plan Status:Home with No Needs Medically Cleared to Leave: Discharge Date:06/04/2017 06:15 PM CM D/C Disposition:Home, Routine, Self-Care ADT D/C Disposition:Home, Routine, Self-Care Projected Discharge Date:06/04/2017 06:15 PM Transportation at D/C: Discharge Delay Reason: Follow-Up Date:06/04/2017 06:15 PM Discharge Slot: Final Diagnosis: Placement Information Patient Contact Information Contact Name:TIA Relationship: Address:[address] [place] [address] City:[place] Alternate Phone: [facility]/Zip Code:[place] [address] Email: Financial Information Financial Class:HMO and PPO Plans Primary Plan Desc:[employer] Primary Plan Number:[id number] Secondary Plan Desc: Secondary Plan Number: Assessment Information [facility] CM Progress Note CM Note CM Note Notes: 06/04/2017 Case Management Note Met w/pt, Juan José [phone] and granddaughter Elisha [phone]. Pt is enrolled in the [employer] program. She attends the day program 3 days a week. She has unskilled care through [facility] for 1 hour a day on the other 2 days of the week. She is enrolled in gym classes at [facility] [employer] to work on gait and balance and increasing endurance. Spoke w/ nurse practitioner at the [employer] program today [phone]. Per SENIOR PLANNING MANAGER, Dr. Starr from [employer] would like pace maker interrogated while at [facility]. Notified 2 W RN who stated that was ordered for today. [employer] would like daily updates faxed to [phone]. Notified [employer] that a transitional care consult had been ordered. Case Management d/c poc: Return to utilizing [employer] programs. Pt has strong family support. Case Management to follow for further d/c needs. Date Signed: 06/04/2017 11:16 AM Electronically Signed By:Viola Luna, RN Intervention Information
== END 2017-06-04 18:15 | disposition home or self-care (01) ==
LOC: F2W 22:22
PROVIDERS: ADMIT Family Medicine; ATTEND Family Medicine
DX: R07.9 Chest pain, unspecified (principal); R09.02 Hypoxemia; I25.10 Atherosclerotic heart disease of native coronary artery without angina pectoris; I44.7 Left bundle-branch block, unspecified; I48.91 Unspecified atrial fibrillation; I49.5 Sick sinus syndrome; I35.0 Nonrheumatic aortic (valve) stenosis; I50.30 Unspecified diastolic (congestive) heart failure; F03.90 Unspecified dementia, unspecified severity, without behavioral disturbance, psychotic disturbance, mood disturbance, and anxiety; I11.0 Hypertensive heart disease with heart failure; E03.9 Hypothyroidism, unspecified; I13.0 Hypertensive heart and chronic kidney disease with heart failure and stage 1 through stage 4 chronic kidney disease, or unspecified chronic kidney disease; N18.3 Chronic kidney disease, stage 3 (moderate); Z79.82 Long term (current) use of aspirin; Z85.3 Personal history of malignant neoplasm of breast; Z85.72 Personal history of non-Hodgkin lymphomas; Z95.5 Presence of coronary angioplasty implant and graft; Z95.2 Presence of prosthetic heart valve; Z95.1 Presence of aortocoronary bypass graft; Z95.0 Presence of cardiac pacemaker; Z88.0 Allergy status to penicillin
CPT/HCPCS: 71046; 78452; 93005; 93017; 93306; A9500; G0378; J2785

== ENCOUNTER → 2017-08-10 | Outpatient (CLI) | payer OTHER | LOC: FIMAGING 13:12 | PROVIDERS: ATTEND Internal Medicine Geriatric Medicine | DX: S52.591A Other fractures of lower end of right radius, initial encounter for closed fracture (principal); M81.0 Age-related osteoporosis without current pathological fracture ==

== ENCOUNTER 2018-06-26 08:27 | Inpatient (IN) | payer OTHER ==
[2018-06-26] MEDS ORDERED: ASPIRIN 81 MG CHEWABLE TAB ONE (08:54)
[2018-06-26] MEDS ORDERED: ASPIRIN 81 MG CHEWABLE TAB PO ONE (08:54)
--- NOTE | 2018-06-26 08:54 | EDPHY ---
H & P Time Seen by Provider: 06/26/18 08:43 HPI/ROS: CHIEF COMPLAINT: Chest pain HISTORY OF PRESENT ILLNESS: Patient is a history of coronary artery disease and stenting, her 1st symptoms happened about 10 years ago when she was hiking and [employer] and more identical to this. She woke up today at 5:30 a.m. With midsternal chest discomfort, took 3 nitroglycerin which made it better but it is not completely gone. She says it is still just feels like a "baby elephant" on her chest. Not associated with coughing or recent injury or trauma. Does not radiate. Not associated with shortness of breath or neck or jaw symptoms. REVIEW OF SYSTEMS: Eye: no change in vision ENT: no sore throat Cardiac: HPI Pulmonary: no cough or SOB Abdomen: no vomiting, diarrhea, abdominal pain Musculoskeletal: no back pain Skin: no rash Neuro: no headache Constitutional: no fever : no urinary symptoms A comprehensive 10 point review of systems is otherwise negative aside from elements mentioned in the history of present illness. PAST MEDICAL HISTORY: Includes coronary disease with bypass grafting and pacemaker, stents in atrial fibrillation. Breast cancer, lymphoma, chronic kidney disease, TAVR in 2016. Social history: here with her General Appearance: Alert and conversant, cooperative. Eyes: No scleral icterus. ENT, Mouth: Normal mucous membranes. Respiratory: Normal respiratory effort, breath sounds equal, lungs are clear to auscultation. Cardiovascular: Regular rate and rhythm. No murmur. Gastrointestinal: Abdomen is soft and non tender. Neurological: Alert, face symmetric, normal motor and sensory in extremities. Skin: Warm and dry, no rashes. Not diaphoretic. Musculoskeletal: No calf tenderness or peripheral edema. Psychiatric: Not agitated. Emergency Department course/MDM: Patient presents with concerning symptoms for ACS identical to previous stents. She has a EKG which shows left bundle branch block but no Sgarbossa criteria. She had some relief with oral nitroglycerin but not complete and was started on IV nitroglycerin here. Her initial troponin is negative, she was given additional aspirin. Cardiology consultation with Dr. Toro at 9:15 a.m. and admission. Smoking Status: Never smoked Constitutional: Initial Vital Signs Temperature (C) 36.7 C 06/26/18 08:33 Heart Rate 74 06/26/18 08:33 Respiratory Rate 18 06/26/18 08:33 Blood Pressure 154/77 H 06/26/18 08:33 O2 Sat (%) 93 06/26/18 08:33 O2 Delivery Mode Nasal Cannula O2 (L/minute) 2 Allergies/Adverse Reactions: Penicillins Allergy (Severe, Verified 06/03/17 18:02) Anaphylaxis apixaban Allergy (Verified 06/26/18 08:32) clopidogrel [From Plavix] Allergy (Verified 06/26/18 08:32) tramadol Allergy (Verified 06/26/18 08:32) Home Medications: Medication Instructions Recorded Letrozole [Femara 2.5 mg (*)] 2.5 mg PO DAILY 08/17/13 Multivitamins [Multivitamin (*)] 1 tab PO DAILY 12/27/15 Torsemide [Demadex] 10 mg PO DAILY@12 04/26/16 Torsemide [Demadex] 20 mg PO DAILY 04/26/16 Labetalol HCl [Trandate 100 mg (*)] 100 mg PO BID #60 tab 05/02/16 hydrALAZINE [Apresoline 50 mg (*)] 75 mg PO TID #30 tab 05/02/16 Ascorbic Acid [Vitamin C 500 mg 500 mg PO DAILY 06/03/17 (*)] Levothyroxine [Synthroid 100 mcg 100 mcg PO HS 06/03/17 (*)] Nitroglycerin [Nitrostat 0.4 mg 0.4 mg SL Q5M PRN #1 bottle 06/04/17 (*)] Acetaminophen [Acetaminophen 8 1,300 mg PO Q8 PRN MDD 3000MG 06/26/18 Hour] Aspirin EC [Aspirin EC 81 mg (*)] 81 mg PO DAILY 06/26/18 Cholecalciferol Vit D3 [Vitamin D3 1,000 units PO DAILY 06/26/18 (*)] Diltiazem HCl [Diltiazem 24Hr Cd] 180 mg PO DAILY 06/26/18 Ondansetron HCl [Zofran] 4 mg PO Q8H PRN 06/26/18 Sertraline HCl [Zoloft 25mg (*)] 25 mg PO DAILY 06/26/18 Medical Decision Making - Diagnostics EKG Interpretation: 12-lead EKG interpreted by me; official reading is in computer system. My interpretation is sinus rhythm with left bundle-branch block rate 74. Imaging Results: Imaging Impressions Chest X-Ray 06/26/18 09:04 Impression: Postoperative changes of prior open heart surgery. Borderline cardiac enlargement is noted. Differential Diagnosis: Differential diagnosis considered for chest pain including but not limited to myocardial ischemia, aortic dissection, pericarditis, pulmonary embolus, chest wall pain, pleural inflammation and pulmonary infectious causes. Consult/Admit Bed Type: [place] [id number] Critical Care Time: Critical care time spent by me, Dr. Hair, exclusively with the care of this patient was 30 minutes, exclusive of PA or [employer] time and exclusive of separate procedures. The organ system at risk was cardiovascular and I ordered oral aspirin, IV nitroglycerin, specialist consultation to stabilize the patient and prevent worsening of the patient's condition. - Data Points Laboratory Results: Laboratory Results 06/26/18 08:50 06/26/18 08:50 06/26/18 06/26/18 06/26/18 08:54 08:50 08:50 WBC 6.84 10^3/uL 10^3/uL (3.80-9.50) RBC 4.09 10^6/uL L 10^6/uL (4.18-5.33) Hgb 11.9 g/dL L g/dL (12.6-16.3) Hct 37.5 % L % (38.0-47.0) MCV 91.7 fL fL (81.5-99.8) MCH 29.1 pg pg (27.9-34.1) MCHC 31.7 g/dL L g/dL (32.4-36.7) RDW 14.6 % % (11.5-15.2) Plt Count 271 10^3/uL 10^3/uL (150-400) MPV 8.8 fL fL (8.7-11.7) Neut % (Auto) 70.3 % % (39.3-74.2) Lymph % (Auto) 15.6 % % (15.0-45.0) [place] % (Auto) 10.7 % % (4.5-13.0) Eos % (Auto) 1.9 % % (0.6-7.6) Baso % (Auto) 1.2 % % (0.3-1.7) Nucleat RBC Rel Count 0.0 % % (0.0-0.2) Absolute Neuts (auto) 4.81 10^3/uL 10^3/uL (1.70-6.50) Absolute Lymphs (auto) 1.07 10^3/uL 10^3/uL (1.00-3.00) Absolute Monos (auto) 0.73 10^3/uL 10^3/uL (0.30-0.80) Absolute Eos (auto) 0.13 10^3/uL 10^3/uL (0.03-0.40) Absolute Basos (auto) 0.08 10^3/uL 10^3/uL (0.02-0.10) Absolute Nucleated RBC 0.00 10^3/uL 10^3/uL (0-0.01) Immature Gran % 0.3 % % (0.0-1.1) Immature Gran # 0.02 10^3/uL 10^3/uL (0.00-0.10) Sodium 136 mEq/L mEq/L (135-145) Potassium 4.1 mEq/L mEq/L (3.5-5.2) Chloride 104 mEq/L mEq/L (97-110) Carbon Dioxide 23 mEq/l mEq/l (22-31) Anion Gap 9 mEq/L mEq/L (6-14) BUN 34 mg/dL H mg/dL (7-23) Creatinine 1.4 mg/dL H mg/dL (0.6-1.0) Estimated GFR 36 Glucose 105 mg/dL H mg/dL (70-100) Calcium 9.6 mg/dL mg/dL (8.5-10.4) POC Troponin I 0.00 ng/mL ng/mL (0.00-0.08) Medications Given: Discontinued Medications Aspirin (Aspirin) 324 mg PO EDNOW ONE Stop: 06/26/18 08:55 Last Admin: 06/26/18 08:56 Dose: 324 mg Nitroglycerin/Dextrose (Nitroglycerin 200 Mcg/Ml (Premix)) 250 mls @ 0 mls/hr IV CONT ONE; Titrate PRN Reason: Protocol Stop: 06/26/18 09:05 Last Admin: 06/26/18 09:23 Dose: 250 mls Point of Care Test Results: Chemistry 06/26/18 08:54 POC Troponin I 0.00 ng/mL ng/mL (0.00-0.08) Departure - Departure Disposition: [facility] Acute Clinical Impression: Chest pain Qualifiers: Chest pain type: unspecified Qualified Code(s): R07.9 - Chest pain, unspecified Condition: Good
[2018-06-26 09:01] LABS: PLATELET COUNT 271 10^3/uL (150-400)
[2018-06-26] MEDS ORDERED: NITROGLYCERIN/DEXTROSE 250 ML IV ONE (09:04)
--- NOTE | 2018-06-26 09:05 | CPEKG ---
Test Reason : OPEN Blood Pressure : / mmHG Vent. Rate : 074 BPM Atrial Rate : 074 BPM P-R Int : 173 ms QRS Dur : 144 ms QT Int : 425 ms P-R-T Axes : -44 -48 114 degrees QTc Int : 472 ms Sinus rhythm Left bundle branch block Confirmed by Jose Hair ([id number]) on 06/26/2018 9:05:09 AM Referred By: Jose Hair Confirmed By:Jose Hair
--- NOTE | 2018-06-26 10:45 | PDGENHP ---
History and Physical - Chief Complaint chest pain - History of Present Illness The patient is an 83-year-old female with an extensive past medical history of coronary artery disease, dementia, breast cancer, hypothyroid, hypertension who presented to the emergency room with complaints of acute onset of chest pain. Most history is obtained by her due to the patient's memory deficits. According to him approximately 5:00 a.m. This morning the patient was woken up from sleep with acute left-sided chest pain. The patient described the pain as an elephant sitting on her chest or as a pressure sensation. The pain radiated to her left breast. Her gave her a sublingual nitroglycerin which was effective in relieving a little bit of the pain. He subsequently gave her 2 more sublingual nitroglycerins which both helped slightly and relieving or chest pain. Nothing seemed to worsen the chest pain. Given her extensive past medical history of coronary artery disease they opted to come to the emergency room where she was started on a nitroglycerin drip which apparently was effective in relieving the chest pain entirely. Up until this incident she had been fine with no recent episodes of anginal chest pain. She complained of no nausea vomiting, cough, sweatiness, new lower extremity edema fevers chills or other symptoms. History Information - Allergies/Home Medication List Allergies/Adverse Reactions: Penicillins Allergy (Severe, Verified 06/03/17 18:02) Anaphylaxis apixaban Allergy (Verified 06/26/18 08:32) clopidogrel [From Plavix] Allergy (Verified 06/26/18 08:32) tramadol Allergy (Verified 06/26/18 08:32) Home Medications: Letrozole [Femara 2.5 mg (*)] 2.5 mg PO DAILY 08/17/13 [Last Taken 06/26/18] Multivitamins [Multivitamin (*)] 1 tab PO DAILY 12/27/15 [Last Taken 06/26/18] Torsemide [Demadex] 10 mg PO DAILY@12 04/26/16 [Last Taken 06/25/18] Torsemide [Demadex] 20 mg PO DAILY 04/26/16 [Last Taken 06/26/18] Ascorbic Acid [Vitamin C 500 mg (*)] 500 mg PO DAILY 06/03/17 [Last Taken ] Levothyroxine [Synthroid 100 mcg (*)] 100 mcg PO HS 06/03/17 [Last Taken ] Acetaminophen [Acetaminophen 8 Hour] 1,300 mg PO Q8 PRN MDD 3000MG 06/26/18 [ Last Taken Unknown] Aspirin EC [Aspirin EC 81 mg (*)] 81 mg PO DAILY 06/26/18 [Last Taken 06/26/18] Cholecalciferol Vit D3 [Vitamin D3 (*)] 1,000 units PO DAILY 06/26/18 [Last Taken 06/26/18] Diltiazem HCl [Diltiazem 24Hr Cd] 180 mg PO DAILY 06/26/18 [Last Taken 06/26/18] Ondansetron HCl [Zofran] 4 mg PO Q8H PRN 06/26/18 [Last Taken Unknown] Sertraline HCl [Zoloft 25mg (*)] 25 mg PO DAILY 06/26/18 [Last Taken 06/26/18] I have personally reviewed and updated: family history, medical history, social history, surgical history - Past Medical History atrial fibrillation, coronary artery disease Additional medical history: cad - Surgical History Reports: coronary bypass surgery Additional surgical history: TAVR - Family History Positive for: cancer - Social History Smoking Status: Never smoked Review of Systems Review of Systems: ROS: 10pt was reviewed & negative except for what was stated in HPI & below Physical Exam Physical Exam: Temp Pulse Resp BP Pulse Ox 36.7 C 74 18 115/54 L 97 06/26/18 08:33 06/26/18 10:32 06/26/18 08:33 06/26/18 10:32 06/26/18 09:21 Constitutional: no apparent distress, appears nourished, not in pain Eyes: PERRL, anicteric sclera, EOMI Ears, Nose, Mouth, Throat: moist mucous membranes, hearing normal, ears appear normal, no oral mucosal ulcers Cardiovascular: regular rate and rhythym, no murmur, rub, or gallop, No edema Respiratory: no respiratory distress, no rales or rhonchi, clear to auscultation Gastrointestinal: normoactive bowel sounds, soft, non-tender abdomen, no palpable masses Genitourinary: no bladder fullness, no bladder tenderness Skin: warm, normal color, no rashes or abrasions, no fluctuance, no induration, No mottled Musculoskeletal: full muscle strength, no muscle tenderness, normal joint ROM, no joint effusions Neurologic: CN II-XII Intact, other (Oriented to self and location) Psychiatric: interacting appropriately, not anxious, not encephalopathic, thought process linear Lymph, Heme, Immunologic: no cervical LAD, no supraclavicular LAD Lab Data & Imaging Review 06/26/18 08:50 06/26/18 08:50 WBC 6.84 10^3/uL (3.80-9.50) 06/26/18 08:50 RBC 4.09 10^6/uL (4.18-5.33) L 06/26/18 08:50 Hgb 11.9 g/dL (12.6-16.3) L 06/26/18 08:50 Hct 37.5 % (38.0-47.0) L 06/26/18 08:50 MCV 91.7 fL (81.5-99.8) 06/26/18 08:50 MCH 29.1 pg (27.9-34.1) 06/26/18 08:50 MCHC 31.7 g/dL (32.4-36.7) L 06/26/18 08:50 RDW 14.6 % (11.5-15.2) 06/26/18 08:50 Plt Count 271 10^3/uL (150-400) 06/26/18 08:50 MPV 8.8 fL (8.7-11.7) 06/26/18 08:50 Neut % (Auto) 70.3 % (39.3-74.2) 06/26/18 08:50 Lymph % (Auto) 15.6 % (15.0-45.0) 06/26/18 08:50 [place] % (Auto) 10.7 % (4.5-13.0) 06/26/18 08:50 Eos % (Auto) 1.9 % (0.6-7.6) 06/26/18 08:50 Baso % (Auto) 1.2 % (0.3-1.7) 06/26/18 08:50 Nucleat RBC Rel Count 0.0 % (0.0-0.2) 06/26/18 08:50 Absolute Neuts (auto) 4.81 10^3/uL (1.70-6.50) 06/26/18 08:50 Absolute Lymphs (auto) 1.07 10^3/uL (1.00-3.00) 06/26/18 08:50 Absolute Monos (auto) 0.73 10^3/uL (0.30-0.80) 06/26/18 08:50 Absolute Eos (auto) 0.13 10^3/uL (0.03-0.40) 06/26/18 08:50 Absolute Basos (auto) 0.08 10^3/uL (0.02-0.10) 06/26/18 08:50 Absolute Nucleated RBC 0.00 10^3/uL (0-0.01) 06/26/18 08:50 Immature Gran % 0.3 % (0.0-1.1) 06/26/18 08:50 Immature Gran # 0.02 10^3/uL (0.00-0.10) 06/26/18 08:50 Sodium 136 mEq/L (135-145) 06/26/18 08:50 Potassium 4.1 mEq/L (3.5-5.2) 06/26/18 08:50 Chloride 104 mEq/L (97-110) 06/26/18 08:50 Carbon Dioxide 23 mEq/l (22-31) 06/26/18 08:50 Anion Gap 9 mEq/L (6-14) 06/26/18 08:50 BUN 34 mg/dL (7-23) H 06/26/18 08:50 Creatinine 1.4 mg/dL (0.6-1.0) H 06/26/18 08:50 Estimated GFR 36 06/26/18 08:50 Glucose 105 mg/dL (70-100) H 06/26/18 08:50 Calcium 9.6 mg/dL (8.5-10.4) 06/26/18 08:50 POC Troponin I 0.00 ng/mL (0.00-0.08) 06/26/18 08:54 Assessment & Plan Assessment: 83-year-old female with dementia, and extensive past medical history of coronary artery disease including 4 vessel CABG in 2009, PCI to the LAD and saphenous vein graft in September of 2015, multiple other percutaneous coronary interventions including a total of 7 stents, history of a TAVR with aortic valve replacement in January of 2016, history of atrial fibrillation with sick sinus syndrome and pacemaker placement, who presents to the emergency room with chest pain Chest pain- I reviewed the EKG which shows a left bundle branch block which is chronic. Chest x-ray is unremarkable and unchanged from previous. Troponins are negative x1. I discussed the case with the patient's continuity manager Dr. Toro who will see the patient for further evaluation. Patient last had a Lexiscan in June of 2017 which was unchanged from previous. -cycle troponins -monitor on telemetry -cardiology consulted -continue nitroglycerin drip started in the ER -start lovenox mg/kg bid oer cards request Coronary artery disease- status post 4 vessel CABG in 2009 along with numerous percutaneous coronary interventions with a total of 7 stents placed, and a TAVR. She follows Dr. Phill Toro. -continue aspirin -continue labetalol -continue diltiazem -continue hydralazine -continue torsemide Atrial fibrillation- I reviewed the EKG which shows a sinus rhythm with a chronic left bundle branch block. She has been taken off numerous anticoagulants due to GI bleeding in the past. Also has a pacer for history of sick sinus syndrome. -continue labetalol -continue diltiazem -monitor on telemetry -continue aspirin Dementia- follows with [facility]. Takes no medications for this. Hypothyroid- continue home Synthroid History of breast cancer- on Femara which should be fine to continue Prophylaxis- SCDs, Lovenox if she is not having any procedures Fluids- none Electrolytes- within normal limits Nutrition- NPO until cleared by Cardiology Cor- full code Dispo- observation for chest pain rule out
[2018-06-26] MEDS ORDERED: ONDANSETRON 4 MG/2 ML VIAL IVP PRN (10:58)
[2018-06-26] MEDS ORDERED: ONDANSETRON DISINTEGRATING 4 MG TAB PO PRN (10:58)
[2018-06-26] MEDS ORDERED: *ANGINA PROTOCOL*NITROGLYCERIN/DEXTR IV SCH (14:30)
[2018-06-26] MEDS ORDERED: ENOXAPARIN 100 MG/ML SYR SC SCH (15:45)
[2018-06-26] MEDS: ACETAMINOPHEN 325 MG TAB PO PRN ×2 (18:32→22:49)
[2018-06-26] MEDS: LEVOTHYROXINE 100 MCG TAB PO SCH (20:47)
[2018-06-27 04:21] LABS: PLATELET COUNT 306 10^3/uL (150-400)
--- NOTE | 2018-06-27 05:36 | PDCARPN ---
Cardiology Progress Note Assessment/Plan: Late entry- patient was seen approximately 1400 yesterday Chasidy is an 83 y/o woman well known to me from more than 10 years of outpatient and inpatient contact. She has a complex cardiac history with: - Coronary artery disease: Initial PCI in 2005 followed by 4 vessel CABG in 2009 , and subsequent two-vessel PCI in 2016. - Chronic diastolic CHF - Valvular heart disease: s/p TAVR in 2016 - Sick sinus syndrome: s/p dual chamber pacemaker in 2015 - Paroxysmal atrial fibrillation: Not on systemic anticoagulation secondary to a history of GI bleeding; she has a low burden of AF (0.5% on last pacer interrogation) - Hypertension I last saw her about 6 weeks ago. At that time, she was stable without symptoms suggestive of angina and was volume compensated with respect to her CHF. Yesterday morning she awoke at 0530 with discomfort described as an "elephant on her chest". She got partial relief from 3 sublingual nitroglycerin. Her contacted her PCP if there is at present, is to take her to the emergency room. He did not feel that an ambulance transport was necessary and preferred to bring her by private vehicle to [facility] rather than have her end up being hospitalized in [place]. In the emergency room, she finally received complete relief of her discomfort after an intravenous nitroglycerin drip was initiated. This was about 0900. Her ECG is not interpretable for ischemic changes because of a baseline left bundle branch block. Overnight, all of her troponins have come back normal at <0.012. I had a long conversation with Chasidy and Juan José yesterday. We plan to take a conservative approach because of her chronic renal insufficiency which increases the risk of contrast-induced nephropathy and because she has relatively small and diffusely diseased coronary arteries with diminishing revascularization options. - Will order a Lexiscan nuclear stress test. - Echo to check LV function and the status of her TAVR bioprosthesis. - Order a BNP level. - Proceed to cardiac catheterization only if he she has ongoing symptoms that cannot be controlled medically and/or a large territory of myocardium at risk on her nuclear stress test. 06/27/18 05:37 Subjective: No chest pain at present. Reviewed/Discussed With: family, hospitalist Time Spent with Patient: greater than 35 minutes Time Spent with Patient: Greater than 35 minutes spent on this patients care, greater than 50% of time spent counseling, educating, and coordinating care regarding the above mentioned plan. Objective: Vital Signs (8 Hrs) Temp Pulse Resp BP Pulse Ox 06/27/18 04:00 37.1 C 88 18 154/78 H 94 06/26/18 23:17 37.7 C 80 18 130/63 H 95 Intake/Output (24 Hrs) 06/25/18 06/26/18 06/27/18 05:59 05:59 05:59 Intake Total 2615 Output Total 900 Balance 1715 Intake: Oral (ml) 615 IV Infused (ml) 2000 Output: Urine (ml) 900 Toilet 900 Other: Weight 101.2 kg Number of Voids Toilet 1 Result Diagrams: 06/27/18 03:19 06/27/18 03:19 Cardiac Labs: Cardiac Lab Results (72 Hrs) 06/26/18 06/26/18 06/26/18 18:45 15:20 11:59 Troponin I < 0.012 < 0.012 < 0.012 - Physical Exam Constitutional: no apparent distress, obese Eyes: anicteric sclera Ears, Nose, Mouth, Throat: moist mucous membranes Cardiovascular: regular rate and rhythm, systolic murmur Respiratory: clear to auscultate bilat Gastrointestinal: no tenderness, no masses Skin: no rashes, other (mild edema) Neurologic: AAOx3 Psychiatric: not anxious ICD10 Worksheet Patient Problems: Problems Problem Status Onset Chest pain Acute Anemia Acute CAD (coronary artery disease) Acute Chronic anemia Acute Chronic bilateral upper abdominal pain Acute Chronic obstructive pulmonary disease with acute exacerbation Acute Dehydration Acute Dyspnea Acute Gastrointestinal bleed Acute Hypercalcemia Acute Hypoxia Acute Renal failure Acute Renal insufficiency Acute Upper GI bleed Acute Upper GI bleed Acute Upper abdominal pain Acute
[2018-06-27] MEDS: LABETALOL HCL 100 MG TAB PO SCH ×3 (06:32→20:38)
[2018-06-27] MEDS ORDERED: ENOXAPARIN 40 MG/0.4 ML SYR SC SCH (09:00)
[2018-06-27] MEDS: ENOXAPARIN 100 MG/ML SYR SC SCH ×2 (09:36→20:37)
[2018-06-27] MEDS ORDERED: REGADENOSON 0.4 MG/5 ML SYR IVP ONE (09:49)
[2018-06-27] MEDS: DILTIAZEM CD 180 MG CAP PO SCH (10:51)
[2018-06-27] MEDS: SERTRALINE HCL 25 MG TAB PO SCH (10:52)
[2018-06-27] MEDS: TORSEMIDE 20 MG TAB PO SCH ×2 (10:52→13:44)
[2018-06-27] MEDS: LETROZOLE 2.5 MG TAB PO SCH (10:52)
[2018-06-27] MEDS: ASPIRIN EC 81 MG TAB PO SCH (10:52)
--- NOTE | 2018-06-27 12:38 | PDCARPN ---
Cardiology Progress Note Assessment/Plan: Coronary Artery Disease: Initial PCI in 2005 followed by 4 vessel CABG in 2009, and subsequent two-vessel PCI in 2016. Now admitted with symptoms consistent with unstable angina. ECG not helpful due to LBBB. Serial troponins normal. Some residual discomfort this a.m. - Lexiscan nuclear stress test performed this a.m. Result not yet reported. - Would consider repeat cath for angina that cannot be controlled medically or if nuc stress indicates a significant territory of myocardium at risk. - Otherwise would continue IV NTG and full dose LMWH for "plaque passivation". Chronic Diastolic CHF: Appears generally volume compensated. BNP is 1170 (it was 707 and 380 in October and October of 2017). - Continue current diuretic regimen. Valvular Heart Disease: s/p TAVR in Jan 2016. - Echo ordered to assess status of her bioprosthesis. Sick Sinus Syndrome: s/p dual chamber pacemaker in 2014. No issues. Device interrogation from last month indicates she paces in the atrium 11% of the time and in the ventricle <1% of the time. Paroxysmal Atrial Fibrillation: Not on systemic anticoagulation secondary to a history of GI bleeding; she has a low burden of AF (0.5% on last pacer interrogation) Hypertension: Adequately controlled. - Continue current antihypertensive regimen. 06/27/18 12:54 Subjective: Some CP after Nuc stress this a.m. Reviewed/Discussed With: family Objective: Vital Signs (8 Hrs) Temp Pulse Resp BP Pulse Ox 06/27/18 12:00 37.4 C 84 20 112/60 95 06/27/18 07:07 37.2 C 81 17 135/67 H 93 06/27/18 07:05 85 135/67 H 94 Intake/Output (24 Hrs) 06/26/18 06/27/18 06/28/18 05:59 05:59 05:59 Intake Total 2615 Output Total 900 Balance 1715 Intake: Oral (ml) 615 IV Infused (ml) 2000 Output: Urine (ml) 900 Toilet 900 Other: Weight 101.2 kg Number of Voids Toilet 1 Result Diagrams: 06/27/18 03:19 06/27/18 03:19 Cardiac Labs: Cardiac Lab Results (72 Hrs) 06/26/18 06/26/18 06/26/18 18:45 15:20 11:59 Troponin I < 0.012 < 0.012 < 0.012 - Physical Exam Constitutional: no apparent distress, obese Eyes: anicteric sclera Ears, Nose, Mouth, Throat: moist mucous membranes Cardiovascular: regular rate and rhythm, systolic murmur Respiratory: clear to auscultate bilat Gastrointestinal: normoactive bowel sounds, no tenderness, no masses Skin: other (mild edema) Neurologic: AAOx3 Psychiatric: not anxious ICD10 Worksheet Patient Problems: Problems Problem Status Onset Gastrointestinal bleed Acute Dyspnea Acute Upper GI bleed Acute Chronic obstructive pulmonary disease with acute exacerbation Acute CAD (coronary artery disease) Acute Anemia Acute Upper abdominal pain Acute Renal insufficiency Acute Chronic bilateral upper abdominal pain Acute Renal failure Acute Chronic anemia Acute Dehydration Acute Hypercalcemia Acute Upper GI bleed Acute Chest pain Acute Hypoxia Acute
--- NOTE | 2018-06-27 13:03 | ASMTCMCOM ---
CM Note CM Note Notes: 06/27/2018 Case Management Note Pt admitted for chest pain with history of CABG. Discussed pt during rounds this morning. PT OT evals are pending. Pt is part of [facility]. Phone call to [facility] alerting to admission. Pt attends day center daily, meals and med management are provided. On the third Wednesday of every month [employer] services are provided. All discharge plans will be determined by [facility]. Case Management d/c poc: to be determined. Case Management will follow. Date Signed: 06/27/2018 12:59 PM Electronically Signed By:Viola Luna RN
--- NOTE | 2018-06-27 15:23 | PDCARST ---
CAR Stress Test Results Type of Stress Test: Lexiscan stress test Indication: CP/CAD Description of Procedure: After informed consent was obtained, pt was established to ECG, blood pressure, HR and oximetry monitoring. STRESS EKG AND HEMODYNAMIC DATA. Resting heart rate: 85 BPM. Resting ECG: SR, LBBB. Resting blood pressure: 190/86 mmHg. O2 saturation at rest: 97%. Peak heart rate: 85 BPM. Peak blood pressure: 170/84 mmHg. Arrhythmias: none. Symptoms: The patient experienced no typical symptoms of angina during stress or recovery. Stress/Infusion ECG: No change in rhythm with no significant ST/T wave changes. Stress/infusion O2 saturation: 97% Impression: Uneventful Lexiscan infusion. Conclusion: Await nuclear imaging.
--- NOTE | 2018-06-27 16:48 | HOSPPROG ---
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 ECG with LBBB, and troponins are negative X3. she continues to have chest pain, that is relieved with the nitroglycerin gtt. -continue nitro PRN -continue lovenox for now -cardiology following Coronary artery disease- status post 4 vessel CABG in 2009 along with numerous percutaneous coronary interventions with a total of 7 stents placed, and a TAVR. She follows Dr. Phill Toro. -continue aspirin -continue labetalol -continue diltiazem -continue hydralazine -continue torsemide Atrial fibrillation- I reviewed the EKG which shows a sinus rhythm with a chronic left bundle branch block. She has been taken off numerous anticoagulants due to GI bleeding in the past. Also has a pacer for history of sick sinus syndrome. -continue labetalol -continue diltiazem -monitor on telemetry -continue aspirin Dementia- follows with [facility]. Takes no medications for this. Hypothyroid- continue home Synthroid History of breast cancer- on Femara which should be fine to continue Prophylaxis- SCDs, Lovenox if she is not having any procedures Fluids- none Electrolytes- within normal limits Nutrition- NPO until cleared by Cardiology Cor- full code Dispo- observation for chest pain rule out Subjective: still with on and off chest pain Objective: Vital Signs Temp Pulse Resp BP Pulse Ox 37.6 C 86 20 133/63 H 97 06/27/18 16:00 06/27/18 16:00 06/27/18 16:00 06/27/18 16:00 06/27/18 16:00 Laboratory Results 06/27/18 03:19 06/27/18 03:19 06/26/18 06/27/18 06/28/18 05:59 05:59 05:59 Intake Total 2615 Output Total 900 Balance 1715 - Physical Exam Constitutional: no apparent distress, appears nourished, not in pain Eyes: PERRL, anicteric sclera, EOMI Ears, Nose, Mouth, Throat: moist mucous membranes, hearing normal, ears appear normal, no oral mucosal ulcers Cardiovascular: regular rate and rhythym, no murmur, rub, or gallop Respiratory: no respiratory distress, no rales or rhonchi, clear to auscultation Gastrointestinal: normoactive bowel sounds, soft, non-tender abdomen, no palpable masses Genitourinary: no bladder fullness, no bladder tenderness, no renal bruits Skin: no rashes or abrasions, no fluctuance, no induration Musculoskeletal: full muscle strength, no muscle tenderness, normal joint ROM Neurologic: AAOx3, sensation intact bilaterally Psychiatric: interacting appropriately, not anxious, not encephalopathic, thought process linear Lymph, Heme, Immunologic: no cervical LAD, no supraclavicular LAD ICD10 Worksheet Patient Problems: Problems Problem Status Onset Chest pain Acute Anemia Acute CAD (coronary artery disease) Acute Chronic anemia Acute Chronic bilateral upper abdominal pain Acute Chronic obstructive pulmonary disease with acute exacerbation Acute Dehydration Acute Dyspnea Acute Gastrointestinal bleed Acute Hypercalcemia Acute Hypoxia Acute Renal failure Acute Renal insufficiency Acute Upper GI bleed Acute Upper GI bleed Acute Upper abdominal pain Acute
--- NOTE | 2018-06-27 16:51 | ECHO ---
[email or web address] [address] [address] Main: [phone] Fax: Transthoracic Echocardiogram Name: LATOYA IRWIN MR#: [id number] Study Date: 06/27/2018 Study Time: 03:29 PM Date of : 1935 Age: 83 year(s) Height: 162.6 cm (64 in.) Weight: 100.7 kg (222 lb.) BSA: 2.04 m2 Gender: Female Examination: Echo Indication: Chronic CHF/TAVR in 2015 Image Quality: Good Contrast: Requested by: Phill Toro BP: 112 mmHg/60 mmHg Heart Rate: Rhythm: Indication: Chronic CHF/TAVR in 2015 Procedure Staff [place] Operator: Ashly Vargas RDCS Reading Physician: Phill Toro MD Requesting Provider: Conclusions: Normal size left ventricle. The ejection fraction is estimated to be 60-65 %. Diastolic dysfunction is present. . LV septal motion consistent with conduction abnormality.. There is a pacemaker lead noted in the right ventricle. Mild mitral valve leaflet calcification is present. Mild to moderate mitral regurgitation. TAVR Core valve in place. AV max PG is 24mmHG. AV mean PG is 14mmHG.. There is no aortic valve regurgitation. Mild tricuspid regurgitation is present. No pericardial effusion. Compared to 06/04/2017, the bioprosthetic aortic valve peak/mean gradients have increased (previoulsy 12/7 mmHg). Measurements: Chambers Valvular Assessment AV/MV Valvular Assessment TV/PV Normal Normal Normal Name Value Range Name Value Range Name Value Range IVSd (2D): 1.0 cm (0.6 cm-1.1 AV Vmax: 2.41 m/s (1 m/s-1.7 TR Vmax: 2.82 mm/s ( - ) cm) m/s) TR PGmax: 32 mmHg ( - ) LVDd (2D): 4.9 cm (3.9 cm-5.3 AV meanP mmHg ( - ) syst. PAP: 37 mmHg ( - ) cm) MV E Vmax: 1.34 m/s ( - ) LVDs (2D): 3.2 cm (2.1 cm-4 MV A Vmax: 1.07 m/s ( - ) cm) MV E/A: 1.25 ( - ) LVPWd (2D): 1.0 cm ( - ) LVOTd 2.1 cm 2.1 cm mm LVEF (BP): 68 % (>=55 %) EF Range: 60-65 % Continued Measurements: Patient: LATOYA IRWIN Study Date: 06/27/2018 Page 1 of 2 03:29 PM Chambers Valvular Assessment AV/MV Valvular Assessment TV/PV Name Value Name Value Name Value LADs: 4.6 cm MV E' Septal: 0.06 m/s CVP (est.): 5 mmHg LADs Lon.5 cm MV E/E' Septal: 23.70 LA Area: 23.8 cm2 MV E/E' Lateral: 22.20 LA Volume: 63 ml LA Volume Index: 30.9 ml/m2 Additional Vessels Name Value Ao Ascendin.1 cm Findings: Left Ventricle: Normal size left ventricle. Normal global systolic LV function. The ejection fraction is estimated to be 60-65 %. Diastolic dysfunction is present. . LV septal motion consistent with conduction abnormality.. Right Ventricle: Normal size right ventricle. There is a pacemaker lead noted in the right ventricle. Left Atrium: The left atrium is mildly dilated. Right Atrium: The right atrium is normal in size. Mitral Valve: Mild mitral valve leaflet calcification is present. Mild to moderate mitral regurgitation. Aortic Valve: There is no aortic valve regurgitation. TAVR Core valve in place. AV max PG is 24mmHG. AV mean PG is 14mmHG.. Tricuspid Valve: The tricuspid valve is normal in appearance and function. Mild tricuspid regurgitation is present. Pulmonic Valve: The pulmonic valve is normal in appearance and function. Aorta: The aorta is normal. Pericardium: No pericardial effusion. There is pericardial fat. (No Signature Object) Patient: LATOYA IRWIN Study Date: 06/27/2018 Page 2 of 2 03:29 PM [id number]
[2018-06-27] MEDS: LEVOTHYROXINE 100 MCG TAB PO SCH (20:38)
[2018-06-28] MEDS: ENOXAPARIN 100 MG/ML SYR SC SCH ×2 (09:23→20:14)
[2018-06-28] MEDS: TORSEMIDE 20 MG TAB PO SCH ×2 (09:24→12:48)
[2018-06-28] MEDS: LETROZOLE 2.5 MG TAB PO SCH (09:24)
[2018-06-28] MEDS: SERTRALINE HCL 25 MG TAB PO SCH (09:24)
[2018-06-28] MEDS: LABETALOL HCL 100 MG TAB PO SCH ×2 (09:24→20:13)
[2018-06-28] MEDS: DILTIAZEM CD 180 MG CAP PO SCH (09:24)
[2018-06-28] MEDS: ASPIRIN EC 81 MG TAB PO SCH (09:25)
[2018-06-28] MEDS: ACETAMINOPHEN 325 MG TAB PO PRN (09:43)
[2018-06-28] MEDS ORDERED: KETOROLAC 30 MG/1 ML SDV IVP ONE (11:04)
--- NOTE | 2018-06-28 12:48 | PDCARPN ---
Cardiology Progress Note Assessment/Plan: Coronary Artery Disease: Initial PCI in 2005 followed by 4 vessel CABG in 2009, and subsequent two-vessel PCI in 2016. Now admitted with symptoms consistent with unstable angina. ECG not helpful due to LBBB. Serial troponins normal. Still with some discomfort today but it seems to be more musculoskeletal; e.g.- increased with coughing and somewhat tender to manual pressure. - Lexiscan nuclear stress test from yesterday shows a predominantly fixed defect c/w prior studies done in this facility and at [facility]. - Will stop LMWH after this pm's dose. - Will D/C IV nitro. - Try a single dose of IV toradol. Chronic Diastolic CHF: Appears generally volume compensated. BNP is 1170 (it was 707 and 380 in October and October of 2017). - Continue current diuretic regimen. Valvular Heart Disease: s/p TAVR in Jan 2016. - Echo from yesterday shows normal LVEF and regional wall motion (with the exception if abnormal septal motion related to LBBB and prior heart surgery. Bioprosthetic TAVR gradient mildly increased compared to last year. Sick Sinus Syndrome: s/p dual chamber pacemaker in 2014. No issues. Device interrogation from last month indicates she paces in the atrium 11% of the time and in the ventricle <1% of the time. Paroxysmal Atrial Fibrillation: Not on systemic anticoagulation secondary to a history of GI bleeding; she has a low burden of AF (0.5% on last pacer interrogation) Hypertension: Adequately controlled. - Continue current antihypertensive regimen. 06/28/18 12:52 Subjective: Still having chest pain. Reviewed/Discussed With: family Objective: Vital Signs (8 Hrs) Temp Pulse Resp BP Pulse Ox 06/28/18 08:00 37.4 C 89 18 140/70 H 97 Intake/Output (24 Hrs) 06/27/18 06/28/18 06/29/18 05:59 05:59 05:59 Intake Total 2615 920 Output Total 900 250 Balance 1715 670 Intake: Oral (ml) 615 850 IV Infused (ml) 2000 70 Nitroglycerin/Dextrose 70 250 ml @ Per Protocol IV CONT HEATHER Rx#:[id number] Output: Urine (ml) 900 250 Toilet 900 250 Other: Weight 101.2 kg 101.7 kg Number of Voids Toilet 1 3 Number of Stools Toilet 1 Result Diagrams: 06/27/18 03:19 06/28/18 04:22 Cardiac Labs: Cardiac Lab Results (72 Hrs) 06/26/18 06/26/18 06/26/18 18:45 15:20 11:59 Troponin I < 0.012 < 0.012 < 0.012 - Physical Exam Constitutional: no apparent distress, obese Eyes: anicteric sclera Ears, Nose, Mouth, Throat: moist mucous membranes Cardiovascular: regular rate and rhythm, no gallops, systolic murmur Respiratory: clear to auscultate bilat Gastrointestinal: normoactive bowel sounds, no tenderness, no masses Skin: no edema Psychiatric: not anxious ICD10 Worksheet Patient Problems: Problems Problem Status Onset Chest pain Acute Anemia Acute CAD (coronary artery disease) Acute Chronic anemia Acute Chronic bilateral upper abdominal pain Acute Chronic obstructive pulmonary disease with acute exacerbation Acute Dehydration Acute Dyspnea Acute Gastrointestinal bleed Acute Hypercalcemia Acute Hypoxia Acute Renal failure Acute Renal insufficiency Acute Upper GI bleed Acute Upper GI bleed Acute Upper abdominal pain Acute
--- NOTE | 2018-06-28 13:44 | HOSPPROG ---
Hospitalist Progress Note Assessment/Plan: 83-year-old female with dementia, 4 vessel CABG in 2009, subsequent PCI to the LAD and saphenous vein graft in September of 2015, total of 7 stents, history of a TAVR with aortic valve replacement in January of 2016, history of atrial fibrillation with sick sinus syndrome and pacemaker placement, who presents to the emergency room with chest pain Chest pain- underwent lexiscan stress test today which was negative for any new focal areas of ischemia or new wall motion abnormalities. ECG with LBBB, and troponins are negative X3. she continues to have chest pain, that is relieved with the nitroglycerin gtt. dc nitro gtt 48 hours LMWH Coronary artery disease- status post 4 vessel CABG in 2009 along with numerous percutaneous coronary interventions with a total of 7 stents placed, and a TAVR. She follows Dr. Phill Toor. continue meds Atrial fibrillation- I reviewed the EKG which shows a sinus rhythm with a chronic left bundle branch block. She has been taken off numerous anticoagulants due to GI bleeding in the past. Also has a pacer for history of sick sinus syndrome. Dementia- follows with [facility]. Takes no medications for this. Hypothyroid- continue home Synthroid History of breast cancer- on Femara which should be fine to continue dispo: home 06/29 if no further events Subjective: case d/w dr toro. nitro gtt dc'd Objective: Vital Signs Temp Pulse Resp BP Pulse Ox 37.1 C 83 16 116/58 L 95 06/28/18 12:00 06/28/18 12:00 06/28/18 12:00 06/28/18 12:00 06/28/18 12:00 Laboratory Results 06/27/18 03:19 06/28/18 04:22 06/27/18 06/28/18 06/29/18 05:59 05:59 05:59 Intake Total 2615 920 700 Output Total 900 250 250 Balance 1715 670 450 - Physical Exam Constitutional: no apparent distress, appears nourished Eyes: PERRL, anicteric sclera Ears, Nose, Mouth, Throat: moist mucous membranes, hearing normal Cardiovascular: regular rate and rhythym, no murmur, rub, or gallop Respiratory: no respiratory distress, no rales or rhonchi Gastrointestinal: normoactive bowel sounds, soft, non-tender abdomen Genitourinary: no bladder fullness, No link in urethra Skin: warm, normal color Musculoskeletal: full muscle strength Neurologic: AAOx3 ICD10 Worksheet Patient Problems: Problems Problem Status Onset Chest pain Acute Anemia Acute CAD (coronary artery disease) Acute Chronic anemia Acute Chronic bilateral upper abdominal pain Acute Chronic obstructive pulmonary disease with acute exacerbation Acute Dehydration Acute Dyspnea Acute Gastrointestinal bleed Acute Hypercalcemia Acute Hypoxia Acute Renal failure Acute Renal insufficiency Acute Upper GI bleed Acute Upper GI bleed Acute Upper abdominal pain Acute
--- NOTE | 2018-06-28 16:12 | PDMN ---
Medical Necessity Medical necessity: Change to inpt as of 06/28/18, pt meets inpt criteria per MD order and MCG M-89,chest pain. 83 y/o w/extensive cardiac PMH of CAD w/4 vessel CABG, multiple PCI's (7 stents), hx of TAVR and aortic valve replacement 2015, afib and SSS w/PPM admitted initially as OBS w/chest pain w/symptoms consistent w/USA, was on NTG gtt. Lexiscan stress test today. Upgraded to inpt for persistent cp, IV Toradol trial, est LOS>2Mn for ongoing med nec management of above.
[2018-06-28] MEDS: LEVOTHYROXINE 100 MCG TAB PO SCH (20:13)
[2018-06-29] MEDS: LABETALOL HCL 100 MG TAB PO SCH (08:45)
[2018-06-29] MEDS: SERTRALINE HCL 25 MG TAB PO SCH (08:46)
[2018-06-29] MEDS: TORSEMIDE 20 MG TAB PO SCH (08:46)
[2018-06-29] MEDS: ASPIRIN EC 81 MG TAB PO SCH (08:46)
[2018-06-29] MEDS: LETROZOLE 2.5 MG TAB PO SCH (08:46)
[2018-06-29] MEDS: DILTIAZEM CD 180 MG CAP PO SCH (08:46)
--- NOTE | 2018-06-29 10:11 | HOSPPROG ---
Hospitalist Progress Note Assessment/Plan: 83-year-old female with dementia, 4 vessel CABG in 2009, subsequent PCI to the LAD and saphenous vein graft in September of 2015, total of 7 stents, history of a TAVR with aortic valve replacement in January of 2016, history of atrial fibrillation with sick sinus syndrome and pacemaker placement, who presents to the emergency room with chest pain Chest pain- underwent lexiscan stress test today which was negative for any new focal areas of ischemia or new wall motion abnormalities. ECG with LBBB, and troponins are negative X3. she continues to have chest pain, that is relieved with the nitroglycerin gtt. dc nitro gtt 48 hours LMWH 06/29: marked improvement w toradol s/o musculoskeletal pain Coronary artery disease- status post 4 vessel CABG in 2009 along with numerous percutaneous coronary interventions with a total of 7 stents placed, and a TAVR. She follows Dr. Phill Toro. continue meds Atrial fibrillation- I reviewed the EKG which shows a sinus rhythm with a chronic left bundle branch block. She has been taken off numerous anticoagulants due to GI bleeding in the past. Also has a pacer for history of sick sinus syndrome. Dementia- follows [facility]. Takes no medications for this. Hypothyroid- continue home Synthroid History of breast cancer- on Femara which should be fine to continue dispo: home today >30 minutes Subjective: chest pain markedly improved toradol Objective: Vital Signs Temp Pulse Resp BP Pulse Ox 36.8 C 96 16 138/79 H 91 L 06/29/18 07:42 06/29/18 07:42 06/29/18 08:55 06/29/18 07:42 06/29/18 08:55 Laboratory Results 06/29/18 03:18 06/28/18 06/29/18 06/30/18 05:59 05:59 05:59 Intake Total 850 Output Total 120 Balance 730 - Physical Exam Constitutional: no apparent distress, appears nourished Eyes: PERRL, anicteric sclera Ears, Nose, Mouth, Throat: moist mucous membranes, hearing normal Cardiovascular: regular rate and rhythym, no murmur, rub, or gallop Respiratory: no respiratory distress, no rales or rhonchi Gastrointestinal: normoactive bowel sounds, soft, non-tender abdomen Genitourinary: no bladder fullness, No link in urethra Skin: warm Musculoskeletal: full muscle strength Neurologic: AAOx3 ICD10 Worksheet Patient Problems: Problems Problem Status Onset Chest pain Acute Anemia Acute CAD (coronary artery disease) Acute Chronic anemia Acute Chronic bilateral upper abdominal pain Acute Chronic obstructive pulmonary disease with acute exacerbation Acute Dehydration Acute Dyspnea Acute Gastrointestinal bleed Acute Hypercalcemia Acute Hypoxia Acute Renal failure Acute Renal insufficiency Acute Upper GI bleed Acute Upper GI bleed Acute Upper abdominal pain Acute
[2018-06-29 10:31] VITALS: BP 141/61
--- NOTE | 2018-06-29 10:37 | ASMTDCNOTE ---
Case Management Discharge Discharge Order Complete? Answers: Yes Patient to Obtain Answers: via Family Medications Transportation Arranged Answers: Family/Friends Faxed Final Orders Answers: Yes Agency/Facility Transfer Answers: Yes Report Printed & Faxed to Receiving Agency Family Notified Answers: Yes Discharge Comments Notes: Pt is getting discharged today with ongoing [facility]. CM faxed dc ppwk to [facility] and notified via phone. Pt's is able to transfer. No other CM needs identified at this time. Date Signed: 06/29/2018 10:37 AM Electronically Signed By:GIRISH Arteaga
--- NOTE | 2018-06-29 10:38 | ASMTLACE ---
LACE Length of stay for Answers: Less than 1 day current admission Acuity / Level of Answers: Yes Care: Did the patient have an inpatient admission? Comorbidities - select Answers: Any tumor (including all that apply lymphoma or leukemia) Congestive heart failure Coronary Artery Disease Dementia Other Notes: Hypothyroid; HTN # of Emergency department Answers: 1-2 visits in the last 6 months Score: 14 Date Signed: 06/29/2018 10:38 AM Electronically Signed By:GIRISH Arteaga
--- NOTE | 2018-06-29 10:46 | ASDISCHSUM ---
Discharge Information Plan Status:Home with Home Health Medically Cleared to Leave: Discharge Date: D/C Disposition:Home Health Service [facility] D/C Disposition: Projected Discharge Date:06/29/2018 12:00 AM Transportation at D/C:Family Discharge Delay Reason: Follow-Up Date:06/29/2018 12:00 AM Discharge Slot: Final Diagnosis: Placement Information Patient Contact Information Contact Name:TIA Relationship: Address:[address] [place] [address] City:[place] Alternate Phone: State/Zip Code:[place] [address] Email: Financial Information Financial Class:HMO and PPO Plans Primary Plan Desc:[facility] [employer] Primary Plan Number:[id number] Secondary Plan Desc: Secondary Plan Number: Assessment Information LACE LACE Length of stay for Answers: Less than 1 day current admission Acuity / Level of Answers: Yes Care: Did the patient have an inpatient admission? Comorbidities - select Answers: Any tumor (including all that apply lymphoma or leukemia) Congestive heart failure Coronary Artery Disease Dementia Other Notes: Hypothyroid; HTN # of Emergency department Answers: 1-2 visits in the last 6 months Score: 14 Date Signed: 06/29/2018 10:38 AM Electronically Signed By:GIRISH Arteaga [facility] CM Progress Note CM Note CM Note Notes: 06/27/2018 Case Management Note Pt admitted for chest pain with history of CABG. Discussed pt during rounds this morning. PT OT evals are pending. Pt is part of [facility] [employer] program. Phone call to [facility] [employer] alerting to admission. Pt attends day center daily, meals and med management are provided. On the wednesday of every month [employer] services are provided. All discharge plans will be determined by [facility]. Case Management d/c poc: to be determined. Case Management will follow. Date Signed: 06/27/2018 12:59 PM Electronically Signed By:Viola Luna RN Case Management Discharge Plan Note Case Management Discharge Discharge Order Complete? Answers: Yes Patient to Obtain Answers: via Family Medications Transportation Arranged Answers: Family/Friends Faxed Final Orders Answers: Yes Agency/Facility Transfer Answers: Yes Report Printed & Faxed to Receiving Agency Family Notified Answers: Yes Discharge Comments Notes: Pt is getting discharged today with ongoing [facility]. [facility] [place] and notified via phone. Pt's is able to transfer. No other CM needs identified at this time. Date Signed: 06/29/2018 10:37 AM Electronically Signed By:GIRISH Arteaga Intervention Information
--- NOTE | 2018-06-29 11:06 | PDCARPN ---
Cardiology Progress Note Assessment/Plan: Coronary Artery Disease: Initial PCI in 2005 followed by 4 vessel CABG in 2009, and subsequent two-vessel PCI in 2016. Now admitted with symptoms consistent with unstable angina. ECG not helpful due to LBBB. Serial troponins normal. - CP responded well to IV Toradol; OK to discharge with plan to take scheduled ibuprofen 400 mg BID for 3-5 days and PRN thereafter. - Lexiscan nuclear stress test from 06/27 shows a predominantly fixed defect c/w prior studies done in this facility and at [facility]. Chronic Diastolic CHF: Appears generally volume compensated. BNP is 1170 (it was 707 and 380 in October and October of 2017). - Continue current diuretic regimen. Valvular Heart Disease: s/p TAVR in Jan 2016. - Echo from 06/27 shows normal LVEF and regional wall motion (with the exception if abnormal septal motion related to LBBB and prior heart surgery. Bioprosthetic TAVR gradient mildly increased compared to last year. Sick Sinus Syndrome: s/p dual chamber pacemaker in 2014. No issues. Device interrogation from last month indicates she paces in the atrium 11% of the time and in the ventricle <1% of the time. Paroxysmal Atrial Fibrillation: Not on systemic anticoagulation secondary to a history of GI bleeding; she has a low burden of AF (0.5% on last pacer interrogation) Hypertension: Adequately controlled. - Continue current antihypertensive regimen. 06/29/18 11:02 Reviewed/Discussed With: family Objective: Vital Signs (8 Hrs) Temp Pulse Resp BP Pulse Ox 06/29/18 10:29 37.5 C 84 21 H 141/61 H 95 06/29/18 08:55 16 91 L 06/29/18 07:42 36.8 C 96 17 138/79 H 92 06/29/18 03:23 37.5 C 84 16 124/60 H 93 Intake/Output (24 Hrs) 06/28/18 06/29/18 06/30/18 05:59 05:59 05:59 Intake Total 850 Output Total 120 Balance 730 Intake: Oral (ml) 850 Output: Urine (ml) 120 Toilet 120 Other: Weight 101.8 kg Number of Voids Toilet 3 Number of Stools Toilet 1 Result Diagrams: 06/27/18 03:19 06/29/18 03:18 - Physical Exam Constitutional: no apparent distress Eyes: anicteric sclera Ears, Nose, Mouth, Throat: moist mucous membranes Cardiovascular: regular rate and rhythm, systolic murmur Respiratory: clear to auscultate bilat Gastrointestinal: normoactive bowel sounds, no tenderness, no masses Skin: no edema Neurologic: AAOx3 Psychiatric: not anxious ICD10 Worksheet Patient Problems: Problems Problem Status Onset Chest pain Acute Anemia Acute CAD (coronary artery disease) Acute Chronic anemia Acute Chronic bilateral upper abdominal pain Acute Chronic obstructive pulmonary disease with acute exacerbation Acute Dehydration Acute Dyspnea Acute Gastrointestinal bleed Acute Hypercalcemia Acute Hypoxia Acute Renal failure Acute Renal insufficiency Acute Upper GI bleed Acute Upper GI bleed Acute Upper abdominal pain Acute
--- NOTE | 2018-06-29 13:07 | GDS ---
[f rep st] DISCHARGE SUMMARY DISCHARGE DIAGNOSES: 1. Chest pain, likely musculoskeletal. 2. Atrial fibrillation, on Eliquis. 3. History of breast cancer. 4. Coronary artery disease. Please see admission history and physical by Dr. Daniel Salinas. The patient presented with ch est pain. It was acute onset. She had negative troponins, nonischemic EKG. Echocardiogram showed n o focal wall motion abnormalities, and a myocardial perfusion scan showed evidence of brianna-infarct is chemia that was unchanged from a prior test. She received 48 hours of low-molecular heparin and was briefly on a nitroglycerin drip. At 1 point, Cardiology saw her and gave her dose of Toradol with significant improvement in her . It was therefore considered musculoskeletal pain. She was discharged on unchanged medication regimen with the addition of a 5-day course of low-dose ibuprofen. /[id number]
== END 2018-06-29 11:22 | disposition home health service (06) | DRG 313 ==
LOC: F2W 11:01 → OBSVTOIN 06-28 15:55
PROVIDERS: ADMIT Internal Medicine; ATTEND Internal Medicine
DX: R07.89 Other chest pain (principal); I11.0 Hypertensive heart disease with heart failure; I50.32 Chronic diastolic (congestive) heart failure; I48.0 Paroxysmal atrial fibrillation; I25.10 Atherosclerotic heart disease of native coronary artery without angina pectoris; N18.9 Chronic kidney disease, unspecified; I44.7 Left bundle-branch block, unspecified; F03.90 Unspecified dementia, unspecified severity, without behavioral disturbance, psychotic disturbance, mood disturbance, and anxiety; E03.9 Hypothyroidism, unspecified; Z85.3 Personal history of malignant neoplasm of breast; Z95.5 Presence of coronary angioplasty implant and graft; Z95.1 Presence of aortocoronary bypass graft; Z95.0 Presence of cardiac pacemaker; Z95.3 Presence of xenogenic heart valve
CPT/HCPCS: 84484-ER; 96374; 97116-GP; 97161-GP; 97165-GO; 97530-GO; 97530-GP; A9500; G0378; J1650; J1885; J2785